=== PATIENT | female | born 1980 | race African-American/Black ===

== ENCOUNTER 2016-09-21 13:05 | Emergency (ER) | payer SELFPAY ==
[2016-09-21 13:13] VITALS: BP 125/89; BMI 26.9
--- NOTE | 2016-09-21 13:51 | DR.GENAD ---
HPI - PCP Primary Care Physician: NFD - Complaint/Symptoms Chief Complaint Doctors Comments: Patient admits to head ache for three days has been taking ibuprofen but in subtheapeutic dosing. Denies a history of migraine. Does not have a primary care phycian. Patient denies trauma Chief Complaint:: BAD HEADACHE AND LOW BACK PAIN BC LAYING DOWN SO MUCH Self Treatment fo Chief Complaint: IBUPROFEN, NYQUIL - Source History Provided: Patient - Mode of Arrival Mode of Arrival: Ambulatory - Timing Onset of Chief Complaint: 09/19/16 PMH - PMH Past Medical History: Yes Past Medical History: Hypertension Past Surgical History: Yes Surgical History: - Family History History of Family Medical Conditions: Yes Family Medical History: Diabetes Mellitus, Coronary Artery Disease, Hypertension - Social History Does patient currently use any type of tobacco product: Yes Have you used tobacco products in the last 12 months: Yes Type of Tobacco Use: Cigarettes How many years tobacco product used: 10 Does any household member use tobacco: No Alcohol Use: None Do you use any recreational Drugs:: No Lives With: Spouse Lives Where: Home - infectious screening In the last 2 months have you had wt loss of >10#?: NO Have you had fever, night sweats or hemotysis?: No Have you traveled outside the country in the last 6 months?: No Isolation: Standard ROS - Review of Systems Constitutional: No Symptoms Reported Eyes: No Symptoms Reported ENTM: No Symptoms Reported Respiratoy: No Symptoms Reported Cardiovascular: No Symptoms Reported Gastrointestinal/Abdominal: No Symptoms Reported Genitourinary: No Symptoms Reported Neurological: No Symptoms Reported Musculoskeletal: Back Pain Integumentary: No Symptoms Reported Hematologic/Lymphatic: No Symptoms Reported Endocrine: No Symptoms Reported Psychiatric: No Symptoms Reported All Other Systems: Reviewed and Negative PE - Vital Signs Vitals: Temperature 98.4 F Pulse Rate 77 Respiratory Rate 20 Blood Pressure [Left Arm] 162/96 Blood Pressure 125/89 O2 Sat by Pulse Oximetry 100 - General Limitations: No Limitations General Appearance: Alert, In No Apparent Distress - Head Head Exam: Normal Inspection, Atraumatic - Eyes Eye exam: Normal Appearance, PERRL, EOMI - ENT ENT Exam: Normal Exam External Ear Exam: Normal External Inspection TM/Canal Exam: Bilateral Normal Nose Exam: Normal Nose Exam Mouth Exam: Normal Inspection Throat Exam: Normal Inspection - Neck Neck Exam: Normal Inspection - Chest Chest Inspection: Normal Inspection - Respiratory Respiratory Exam: Normal Lung Sounds Bilat Respiratory Exam: Bilateral Clear to Auscultation - Cardiovascular Cardiovascular Exam: Regular Rate - Abdominal Exam Abdominal Exam: Normal Inspection, Normal Bowel Sounds Abdominal Tenderness: negative: RUQ, RLQ, LUQ, LLQ, Epigastrium, Suprapubic, Diffuse, Mild, Moderate, Severe, Other - Extremities Extremities Exam: Normal Inspection - Back Back Exam: (R) CVA Tenderness, Other (pain right iliac crest ) - Neurologic Neurological Exam: Alert, Oriented X3, CN II-XII Intact - Psychiatric Psychiatric Exam: Normal Affect, Normal Mood - Skin Skin Exam: Warm, Dry, Intact Course - Reevaluation 1st: Improved - Diagnosis Discharge Problem: Headache Qualifiers: Headache type: unspecified Headache chronicity pattern: acute headache Intractability: not intractable Qualified Code(s): R51 - Headache - Discharge Plan Condition: Stable - Follow ups/Referrals Follow ups/Referrals: NFD,None [Primary Care Provider] - 3 days - Instructions
[2016-09-21] MEDS ORDERED: TORADOL 60 MG VIAL IM ONE (14:00)
[2016-09-21] MEDS ORDERED: TORADOL 60 MG VIAL ONE (14:03)
== END 2016-09-21 14:28 | disposition home or self-care (01) ==
LOC: ER 13:37
DX: R51 Headache (principal)
CPT/HCPCS: 96372; 99282; J1885

== ENCOUNTER 2016-09-23 11:58 | Emergency (ER) | payer SELFPAY ==
[2016-09-23 12:06] VITALS: BP 157/86; BMI 30.7
--- NOTE | 2016-09-23 12:15 | DR.GENAD ---
HPI - PCP Primary Care Physician: nfd - Complaint/Symptoms Chief Complaint Doctors Comments: Patient was seen earlier in the week for simlar symptoms, stating that she is worse today, not getting better. She states that her headache is worse, sore throat and chronic back pain. She admits to soreness where she got her shot last week. Chief Complaint:: PT C/O NECK AND HEAD PAIN. AND URINATING BLOOD. PT STATES SHE WAS SEEN IN THE ER DEPT THE OTHER DAY AND PT STATES SHE IS ONLY GETTING WORSE. PT STATES SHE HAS BEEN RUNNING FEVER ON AND OFF AND NOT ABLE TO EAT ANYTHING. PT STATES SHE HAS NOT EVEN BEEN ABLE TO BRUSH HER HAIR HER HEAD HAS BEEN HURTING SO BAD - Source History Provided: Patient - Mode of Arrival Mode of Arrival: Ambulatory - Timing Onset of Chief Complaint: 09/20/16 PMH - PMH Past Medical History: Yes Past Medical History: Hypertension Past Surgical History: Yes Surgical History: - Family History History of Family Medical Conditions: Yes Family Medical History: Diabetes Mellitus, Coronary Artery Disease, Hypertension - Social History Does patient currently use any type of tobacco product: Yes Have you used tobacco products in the last 12 months: Yes Type of Tobacco Use: Cigarettes Does any household member use tobacco: Yes Alcohol Use: None Do you use any recreational Drugs:: No Lives With: Family Lives Where: Home - infectious screening In the last 2 months have you had wt loss of >10#?: NO Have you had fever, night sweats or hemotysis?: No Have you traveled outside the country in the last 6 months?: No Isolation: Standard ROS - Review of Systems Eyes: No Symptoms Reported ENTM: No Symptoms Reported Respiratoy: No Symptoms Reported Cardiovascular: No Symptoms Reported Gastrointestinal/Abdominal: No Symptoms Reported Genitourinary: No Symptoms Reported Neurological: No Symptoms Reported Musculoskeletal: No Symptoms Reported Integumentary: No Symptoms Reported Hematologic/Lymphatic: No Symptoms Reported Endocrine: No Symptoms Reported Psychiatric: No Symptoms Reported All Other Systems: Reviewed and Negative PE - Vital Signs Vitals: Temperature 100.2 F Pulse Rate 106 Respiratory Rate 20 Blood Pressure [Left Arm] 162/96 Blood Pressure 157/86 O2 Sat by Pulse Oximetry 100 - General Limitations: No Limitations General Appearance: Alert, In No Apparent Distress - Head Head Exam: Normal Inspection, Atraumatic - Eyes Eye exam: Normal Appearance, PERRL, EOMI - ENT ENT Exam: Normal Exam External Ear Exam: Normal External Inspection TM/Canal Exam: Bilateral Normal Nose Exam: Normal Nose Exam Mouth Exam: Normal Inspection Throat Exam: Normal Inspection, Tonsillar Erythema - Neck Neck Exam: Normal Inspection - Chest Chest Inspection: Normal Inspection - Respiratory Respiratory Exam: Normal Lung Sounds Bilat Respiratory Exam: Bilateral Clear to Auscultation - Cardiovascular Cardiovascular Exam: Regular Rate, Normal Rhythm - Abdominal Exam Abdominal Exam: Normal Inspection, Normal Bowel Sounds Abdominal Tenderness: negative: RUQ, RLQ, LUQ, LLQ, Epigastrium, Suprapubic, Diffuse, Mild, Moderate, Severe, Other - Extremities Extremities Exam: Normal Inspection - Back Back Exam: Normal Inspection, Full ROM - Neurologic Neurological Exam: Alert, Oriented X3, CN II-XII Intact - Psychiatric Psychiatric Exam: Normal Affect - Skin Skin Exam: Warm, Dry Course - Reevaluation 1st: Improved ROR - Labs Reviewed Laboratory Results Reviewed?: Yes (urine: 2+ lleukocytes, TNTC RBC) Result Diagrams: 09/23/16 12:31 09/23/16 12:31 Laboratory: WBC 19.7 X10^3/uL (3.6-10.0) H 09/23/16 12:31 RBC 3.84 X10^6/uL (3.5-5.4) 09/23/16 12:31 Hgb 11.7 g/dL (12.0-16.0) L 09/23/16 12:31 Hct 34.0 % (36.0-47.0) L 09/23/16 12:31 MCV 88.7 fL (80.0-100.0) 09/23/16 12:31 MCH 30.6 pg (27.0-34.0) 09/23/16 12:31 MCHC 34.5 g/dL (33.0-35.0) 09/23/16 12:31 RDW 13.5 % (11.6-16.5) 09/23/16 12:31 Plt Count 283 X10^3/uL (150.0-450.0) 09/23/16 12:31 Plt Count Comment Adequate (ADEQUATE) 09/23/16 12:31 MPV 7.4 fL (7.4-11.0) 09/23/16 12:31 Neut % 81.9 % (42.0-75.0) H 09/23/16 12:31 Lymph % 5.2 % (21.0-51.0) L 09/23/16 12:31 [place] % 12.2 % (0.0-13.0) 09/23/16 12:31 Eos % 0.1 % (0.9-2.9) L 09/23/16 12:31 Baso % 0.6 % (0.2-1.0) 09/23/16 12:31 Neut # 16.1 x10^3/uL (2.2-4.8) H 09/23/16 12:31 Lymph # 1.0 X10^3/uL (1.3-2.9) L 09/23/16 12:31 [place] # 2.4 x10^3/uL (0.3-0.8) H 09/23/16 12:31 Eos # 0.0 x10^3/uL (0.0-0.2) 09/23/16 12:31 Baso # 0.1 X10^3/uL (0.0-0.1) 09/23/16 12:31 Absolute Nucleated RBC 0.0 /100WBC 09/23/16 12:31 Total Counted 100 09/23/16 12:31 Neutrophils % (Manual) 74 % (39-76) 09/23/16 12:31 Band Neutrophils % 6 % (0-10) 09/23/16 12:31 Lymphocytes % (Manual) 11 % (13-43) L 09/23/16 12:31 Monocytes % (Manual) 9 % (4-9) 09/23/16 12:31 Plt Morphology Comment Normal (NORMAL) 09/23/16 12:31 RBC Morphology Normal (NORMAL) 09/23/16 12:31 Sodium 135 mmol/L (136-145) L 09/23/16 12:31 Corrected Sodium 135 mmol/L (136-145) L 09/23/16 12:31 Potassium 3.0 mmol/L (3.5-5.1) L* 09/23/16 12:31 Chloride 99 mmol/L (98-107) 09/23/16 12:31 Carbon Dioxide 29.3 mmol/L (21-32) 09/23/16 12:31 BUN 6 mg/dL (7-18) L 09/23/16 12:31 Creatinine 0.83 mg/dL (0.55-1.02) 09/23/16 12:31 Est GFR (MDRD) Af Amer > 60 (>60) 09/23/16 12:31 Est GFR (MDRD) Non-Af > 60 (>60) 09/23/16 12:31 Glucose 118 mg/dL (65-99) H 09/23/16 12:31 Calcium 8.9 mg/dL (8.5-10.1) 09/23/16 12:31 C-Reactive Protein 201.10 mg/L (0-3.0) H 09/23/16 12:31 Specimen Type Clean catch urine 09/23/16 12:54 Urine Color Red (YELLOW) 09/23/16 12:54 Urine Appearance Cloudy (CLEAR) 09/23/16 12:54 Urine pH 7.0 (5.0 - 8.0) 09/23/16 12:54 Ur Specific [place] 1.005 (1.000-1.030) 09/23/16 12:54 Urine Protein 3+ (NEGATIVE) 09/23/16 12:54 Urine Glucose (UA) 2+ (NEGATIVE) 09/23/16 12:54 Urine Ketones Negative (NEGATIVE) 09/23/16 12:54 Urine Occult Blood 5+ (NEGATIVE) 09/23/16 12:54 Urine Nitrite Negative (NEGATIVE) 09/23/16 12:54 Urine Bilirubin Negative (NEGATIVE) 09/23/16 12:54 Urine Urobilinogen 1+ (NORMAL) 09/23/16 12:54 Ur Leukocyte Esterase 2+ (NEGATIVE) 09/23/16 12:54 Urine RBC Tntc /HPF (NEGATIVE) 09/23/16 12:54 Urine WBC 3-5 /HPF (NEGATIVE) 09/23/16 12:54 Ur Squamous Epith Cells Rare /HPF (NEGATIVE) 09/23/16 12:54 Urine Bacteria Trace /HPF (NEGATIVE) 09/23/16 12:54 Ur Culture Indicated? No/not indicated 09/23/16 12:54 Streptococcus Screen Negative (NEGATIVE) 09/23/16 12:24 - XRAY XRAY Interpreted by: Radiologist (Sinus: Right sphenoid sinus infection; Mild inflammatory changnes present in the left maxilary sinus.) - Diagnosis Discharge Problem: Hypokalemia, Left maxillary sinusitis UTI (urinary tract infection) Qualifiers: Urinary tract infection type: acute cystitis Hematuria presence: with hematuria Qualified Code(s): N30.01 - Acute cystitis with hematuria Sphenoid sinusitis Qualifiers: Chronicity: acute Recurrence: non-recurrent Qualified Code(s): J01.30 - Acute sphenoidal sinusitis, unspecified - Discharge Plan Condition: Stable - Follow ups/Referrals Follow ups/Referrals: NFD,None [Primary Care Provider] - 3 days - Instructions
[2016-09-23] MEDS ORDERED: NS 1000 ML 1,000 ML IV ONE (12:23)
[2016-09-23] MEDS ORDERED: DEMEROL INJ IVP ONE (12:25)
[2016-09-23] MEDS ORDERED: NS 1000 ML 1,000 ML ONE (12:25)
[2016-09-23] MEDS ORDERED: DEMEROL INJ ONE (12:34)
[2016-09-23] MEDS ORDERED: PHENERGAN INJ 25 MG ONE (12:34)
[2016-09-23] MEDS ORDERED: PHENERGAN INJ 25 MG IV ONE (12:37)
[2016-09-23 12:47] LABS: BASOPHILS # (AUTO) 0.1 X10^3/uL (0.0-0.1); BASOPHILS % (AUTO) 0.6 % (0.2-1.0); EOSINOPHILS % (AUTO) 0.1 % (0.9-2.9); HEMOGLOBIN 11.7 g/dL (12.0-16.0); LYMPHOCYTES % (AUTO) 5.2 % (21.0-51.0); MEAN CORPUSCULAR HEMOGLOBIN 30.6 pg (27.0-34.0); MEAN CORPUSCULAR HGB CONC 34.5 g/dL (33.0-35.0); MEAN CORPUSCULAR VOLUME 88.7 fL (80.0-100.0); MEAN PLATELET VOLUME 7.4 fL (7.4-11.0); MONOCYTES # (AUTO) 2.4 x10^3/uL (0.3-0.8); MONOCYTES % (AUTO) 12.2 % (0.0-13.0); NEUTROPHILS # (AUTO) 16.1 x10^3/uL (2.2-4.8); NEUTROPHILS % (AUTO) 81.9 % (42.0-75.0); PLATELET COUNT 283 X10^3/uL (150.0-450.0); RED BLOOD COUNT 3.84 X10^6/uL (3.5-5.4); RED CELL DISTRIBUTION WIDTH 13.5 % (11.6-16.5); WHITE BLOOD COUNT 19.7 X10^3/uL (3.6-10.0)
[2016-09-23 12:51] LABS: BLOOD UREA NITROGEN 6 mg/dL (7-18); CALCIUM 8.9 mg/dL (8.5-10.1); CARBON DIOXIDE 29.3 mmol/L (21-32); CHLORIDE 99 mmol/L (98-107); COR NA(FOR HYPERGLY) 135 mmol/L (136-145); CREATININE 0.83 mg/dL (0.55-1.02); GLUCOSE 118 mg/dL (65-99); SODIUM 135 mmol/L (136-145); eGFR BLACK RACES > 60 (>60); eGFR NON BLACK RACES > 60 (>60)
[2016-09-23 12:54] LABS: BAND NEUTROPHILS % 6 % (0-10); PLATELET MORPHOLOGY COMMENT NORMAL (NORMAL)
[2016-09-23] MEDS ORDERED: K-LYTE EFFERVESCENT PO ONE (12:55)
--- NOTE | 2016-09-23 13:01 | RAD ---
Examination: Chest x-ray. Clinical history: Fever, headache and back pain. Technique: A single portable AP view of the chest was obtained. Comparison: 12/17/2013. Findings: The cardiac and mediastinal contours are within normal limits. No pneumothorax or pleural effusion is noted. The lungs are clear. No acute osseous abnormality is noted. Impression: 1. No acute disease. Reported By:
[2016-09-23 13:03] LABS: BILIRUBIN,URINE NEGATIVE (NEGATIVE); BLOOD/HEMOGLOBIN,URINE 5+ (NEGATIVE); GLUCOSE, URINE 2+ (NEGATIVE); KETONES,URINE NEGATIVE (NEGATIVE); LEUKOCYTE ESTERASE ,URINE 2+ (NEGATIVE); NITRITES,URINE NEGATIVE (NEGATIVE); PROTEIN,URINE 3+ (NEGATIVE); UROBILINOGEN,URINE 1+ (NORMAL)
--- NOTE | 2016-09-23 13:03 | CT ---
HISTORY: Headache Study: CT sinuses without contrast Comparison: None Technique: Axial non contrast images with coronal and sagittal reformats. Dose reduction procedures were used with MA/kv adjusted for body size. Findings: The frontal sinuses are clear. The right sphenoid sinus is not well aerated. The left sphenoid sinus is clear as are the ethmoid sinuses bilaterally. Mild inflammatory changes present in the left maxi llary sinus with mucosal thickening occluding the ostia on the left. The right maxillary sinus is cl ear as is the right ostiomeatal complex. There is leftward nasal septal deviation with a 4.[address] leftward directed bony septal spur. The middle ear spaces and mastoid air cells are clear. IMPRESSION: Mucosal inflammatory changes in the upper left maxillary sinus occluding the ostia. No air-fluid lev el to suggest acute sinusitis The remainder of the paranasal sinuses are clear. Leftward nasal septal deviation with a 4.5 millimeter leftward directed bony septal spur present. Reported By:
[2016-09-23] MEDS ORDERED: K-LYTE EFFERVESCENT ONE (13:12)
[2016-09-23] MEDS ORDERED: CLEOCIN 600 MG IV PREMIX 600 MG/50 ML BAG IV ONE (13:28)
[2016-09-23 13:32] LABS: APPEARANCE,URINE CLOUDY (CLEAR); BACTERIA,URINE TRACE /HPF (NEGATIVE); COLOR,URINE RED (YELLOW); RBC,URINE TNTC /HPF (NEGATIVE); SQUAMOUS EPITHELIAL CELL,UR RARE /HPF (NEGATIVE)
[2016-09-23] MEDS ORDERED: CLEOCIN VIAL 600 MG ONE (13:41)
[2016-09-23] MEDS ORDERED: K-DUR TAB 20 MEQ PO STA (14:26)
[2016-09-23] MEDS ORDERED: K-DUR TAB 20 MEQ PO ONE (14:45)
== END 2016-09-23 15:21 | disposition home or self-care (01) ==
LOC: ER 12:08
DX: E87.6 Hypokalemia (principal); N39.0 Urinary tract infection, site not specified; R31.9 Hematuria, unspecified; J01.30 Acute sphenoidal sinusitis, unspecified; J01.00 Acute maxillary sinusitis, unspecified
CPT/HCPCS: 36415; 70486; 71010; 80048; 81001; 85025; 86140; 87070; 87880; 96365; 96374; 96375; 99283; A4222; J2175; J2550; S0077

== ENCOUNTER 2023-12-18 16:17 | Observation (INO) ==
--- NOTE | 2023-12-18 17:57 | DR.DIZZY ---
HPI Time seen Time Seen by Provider: 12/18/23 17:48 PCP Primary Care Physician: MARIAJOSE Complaint Chief Complaint:: patient states yesterday she started feeling very lighted headed and right sided rib pain denies any injuries. patient denies any vomiting,nauseous,fever. Last bowel movement was 2 days ago COVID-19 Coronavirus risk:travel/contact w/high risk person: No Has patient experienced Coronavirus symptoms: No Nurses Notes Reviewed Nurses Notes Review: Yes Source History Provided: Patient Mode of Arrival Mode of Arrival: Wheelchair Timing Onset of Chief Complaint: 12/17/23 PMH PMH Past Medical History: Yes Past Medical History: Hypertension Past Medical History Comment: chronic back pain Past Surgical History: Yes Surgical History: Family History History of Family Medical Conditions: Yes Family Medical History: Diabetes Mellitus and Hypertension Social History Does patient currently use any type of tobacco product: Yes Have you used tobacco products in the last 12 months: Yes Type of Tobacco Use: Cigarettes Does any household member use tobacco: Yes Alcohol Use: None Do you use any recreational Drugs:: No Lives With: Family Lives Where: Home Travel Risk Coronavirus risk:travel/contact w/high risk person: No Has patient experienced Coronavirus symptoms: No Infectious screening In the last 2 months have you had wt loss of >10#?: NO Have you had fever, night sweats or hemotysis?: No Have you traveled outside the country in the last 6 months?: No Isolation: Standard PE Vital Signs Vitals: Vital Signs Temperature 99.0 F Pulse Rate 105 Respiratory Rate 20 Blood Pressure [Right Arm] 127/60 Blood Pressure 121/61 O2 Sat by Pulse Oximetry 100 ROR Labs Reviewed 12/18/23 17:53 12/18/23 17:53 Laboratory: WBC 7.7 X10^3/uL (3.6-10.0) 12/18/23 17:53 RBC 2.20 X10^6/uL (3.5-5.4) L 12/18/23 17:53 Hgb 4.0 g/dL (12.0-16.0) L* 12/18/23 17:53 Hct 13.8 % (36.0-47.0) L* 12/18/23 17:53 MCV 62.8 fL (80.0-100.0) L 12/18/23 17:53 MCH 18.2 pg (27.0-34.0) L 12/18/23 17:53 MCHC 28.9 g/dL (33.0-35.0) L 12/18/23 17:53 RDW 21.8 % (11.6-16.5) H 12/18/23 17:53 Plt Count 301 X10^3/uL (150.0-450.0) 12/18/23 17:53 Plt Count Comment Adequate (ADEQUATE) 12/18/23 17:53 MPV 7.1 fL (7.4-11.0) L 12/18/23 17:53 Neut % (Auto) 46.6 % (42.0-75.0) 12/18/23 17:53 Lymph % (Auto) 46.7 % (21.0-51.0) 12/18/23 17:53 [place] % (Auto) 4.4 % (0.0-13.0) 12/18/23 17:53 Eos % (Auto) 0.4 % (0.9-2.9) L 12/18/23 17:53 Baso % (Auto) 1.9 % (0.2-1.0) H 12/18/23 17:53 Neut # (Auto) 3.6 x10^3/uL (2.2-4.8) 12/18/23 17:53 Lymph # (Auto) 3.6 X10^3/uL (1.3-2.9) H 12/18/23 17:53 [place] # (Auto) 0.3 x10^3/uL (0.3-0.8) 12/18/23 17:53 Eos # (Auto) 0.0 x10^3/uL (0.0-0.2) 12/18/23 17:53 Baso # (Auto) 0.1 X10^3/uL (0.0-0.1) 12/18/23 17:53 Absolute Nucleated RBC 0.1 /100WBC 12/18/23 17:53 Plt Morphology Comment Normal (NORMAL) 12/18/23 17:53 RBC Morphology Abnormal (NORMAL) A 12/18/23 17:53 Hypochromasia 3+ A 12/18/23 17:53 Anisocytosis 1+ A 12/18/23 17:53 Microcytosis 2+ A 12/18/23 17:53 Absolute Retic 0.0487 10^6/uL 12/18/23 17:53 Percent Retic 2.19 % (0.8-2.2) 12/18/23 17:53 Sodium 137 mmol/L (136-145) 12/18/23 17:53 Corrected Sodium TNP 12/18/23 17:53 Potassium 3.9 mmol/L (3.5-5.1) 12/18/23 17:53 Chloride 104 mmol/L (98-107) 12/18/23 17:53 Carbon Dioxide 27.8 mmol/L (21-32) 12/18/23 17:53 BUN 20 mg/dL (7-18) H 12/18/23 17:53 Creatinine 0.69 mg/dL (0.55-1.02) 12/18/23 17:53 Est GFR (MDRD) Af Amer > 60 (>60) 12/18/23 17:53 Est GFR (MDRD) Non-Af > 60 (>60) 12/18/23 17:53 Glucose 110 mg/dL (65-99) H 12/18/23 17:53 Calcium 8.8 mg/dL (8.5-10.1) 12/18/23 17:53 Corrected Calcium 9.5 mg/dL (8.5-10.1) 12/18/23 17:53 Iron 8 ug/dL (50-175) L 12/18/23 17:53 TIBC 461 ug/dL (250-450) H 12/18/23 17:53 Transferrin 334 mg/dL (202-364) 12/18/23 17:53 Ferritin 3 ng/mL (8-252) L 12/18/23 17:53 Total Bilirubin 0.10 mg/dL (0.2-1.0) L 12/18/23 17:53 AST 10 Units/L (15-37) L 12/18/23 17:53 ALT 15 Units/L (12-78) 12/18/23 17:53 Alkaline Phosphatase 55 Units/L (46-116) 12/18/23 17:53 Total Protein 6.5 g/dL (6.4-8.2) 12/18/23 17:53 Albumin 3.1 g/dL (3.4-5.0) L 12/18/23 17:53 Globulin 3.4 g/dL (2.5-4.5) 12/18/23 17:53 Albumin/Globulin Ratio 0.9 Ratio (1.1-2.1) L 12/18/23 17:53 Vitamin B12 474 pg/mL (193-986) 12/18/23 17:53 Folate 11.7 ng/mL (>8.6) 12/18/23 17:53 SARS-CoV-2 (PCR) Negative (NEGATIVE) 12/18/23 18:53 Blood Type A POSITIVE 12/18/23 18:43 Antibody Screen Negative 12/18/23 18:43 Crossmatch See Detail 12/18/23 18:43 Opioid Opioid Risk Tool Age (Robert box if 16-45): Yes History of Preadolescent Sexual Abuse: No Total: 1 Total Score Risk Category: Low Risk Copyright: Kevin BOGGS predicting aberrant behaviors Discharge Plan Diagnosis Discharge Problem: Anemia, Dizziness Discharge Plan Patient Disposition: 01 HOME, SELF-CARE Condition: Stable Prescriptions: No Action [facility] Concerns: Post Hospitalization: new medications and changes needed to prevent readmission or further decline. Pt educated and given instructions on all concerns. Plan of Treatment: Continue with present treatment and follow up plan. Pt is to keep follow up appointment as instructed and take medications as ordered. Orders to Discharge Patient Discharge Orders: Transfer (Routine); Ordered 12/18/23 Ordered By: ANTON DAMON Follow ups/Referrals Follow ups/Referrals: NFD,None [Primary Care Provider] - 3 days Instructions Stand Alone Forms: Post Hospital Follow Up Care
[2023-12-18 18:20] LABS: ALANINE AMINOTRANSFERASE 15 Units/L (12-78); ALBUMIN 3.1 g/dL (3.4-5.0); ALKALINE PHOSPHATASE 55 Units/L (46-116); ASPARTATE AMINO TRANSFERASE 10 Units/L (15-37); BLOOD UREA NITROGEN 20 mg/dL (7-18); CALCIUM 8.8 mg/dL (8.5-10.1); CARBON DIOXIDE 27.8 mmol/L (21-32); CHLORIDE 104 mmol/L (98-107); COR CA(FOR HYPOALB) 9.5 mg/dL (8.5-10.1); CREATININE 0.69 mg/dL (0.55-1.02); GLUCOSE 110 mg/dL (65-99); POTASSIUM 3.9 mmol/L (3.5-5.1); SODIUM 137 mmol/L (136-145); TOTAL PROTEIN 6.5 g/dL (6.4-8.2); eGFR NON BLACK RACES > 60 (>60)
[2023-12-18 18:23] LABS: BASOPHILS # (AUTO) 0.1 X10^3/uL (0.0-0.1); BASOPHILS % (AUTO) 1.9 % (0.2-1.0); EOSINOPHILS % (AUTO) 0.4 % (0.9-2.9); LYMPHOCYTES # (AUTO) 3.6 X10^3/uL (1.3-2.9); LYMPHOCYTES % (AUTO) 46.7 % (21.0-51.0); MEAN CORPUSCULAR HEMOGLOBIN 18.2 pg (27.0-34.0); MEAN CORPUSCULAR HGB CONC 28.9 g/dL (33.0-35.0); MEAN CORPUSCULAR VOLUME 62.8 fL (80.0-100.0); MEAN PLATELET VOLUME 7.1 fL (7.4-11.0); MONOCYTES # (AUTO) 0.3 x10^3/uL (0.3-0.8); MONOCYTES % (AUTO) 4.4 % (0.0-13.0); NEUTROPHILS # (AUTO) 3.6 x10^3/uL (2.2-4.8); NEUTROPHILS % (AUTO) 46.6 % (42.0-75.0); PLATELET COUNT 301 X10^3/uL (150.0-450.0); RED CELL DISTRIBUTION WIDTH 21.8 % (11.6-16.5); WHITE BLOOD COUNT 7.7 X10^3/uL (3.6-10.0)
[2023-12-18 18:29] LABS: HEMATOCRIT 13.8 % (36.0-47.0)
[2023-12-18 18:43] LABS: ANISOCYTOSIS 1+; HYPOCHROMASIA 3+; MICROCYTOSIS 2+; PLATELET MORPHOLOGY COMMENT NORMAL (NORMAL)
[2023-12-18 19:17] LABS: RETICULOCYTE % 2.19 % (0.8-2.2)
[2023-12-18] MEDS ORDERED: NS 250 ML IV 250 ML IV ONE (21:56)
[2023-12-19] MEDS: NORCO 5/325 MG TAB PO PRN (00:55)
[2023-12-19 01:21] VITALS: BMI 23.6
[2023-12-19] MEDS: MORPHINE SULFATE INJ 2 MG INJ IVP PRN (03:30)
--- NOTE | 2023-12-19 04:41 | EKG ---
Test Reason : hypertenion protocol Blood Pressure : */* mmHG Vent. Rate : 69 BPM Atrial Rate : 69 BPM P-R Int : 138 ms QRS Dur : 82 ms QT Int : 408 ms P-R-T Axes : 58 63 86 degrees QTc Int : 437 ms Normal sinus rhythm Minimal voltage criteria for LVH, may be normal variant ( Sokolow-Tucker ) Nonspecific T wave abnormality Abnormal ECG No previous ECGs available Confirmed by Domenic Kidd MD ([id number]) on 12/19/2023 7:01:12 AM Referred By: Confirmed By: Domenic Kidd MD
[2023-12-19] MEDS: CATAPRES TAB 0.1 MG PO ONE (04:45)
[2023-12-19] MEDS: APRESOLINE INJ 20 MG VIAL IVP ONE (06:01)
[2023-12-19 06:40] LABS: BASOPHILS # (AUTO) 0.1 X10^3/uL (0.0-0.1); EOSINOPHILS # (AUTO) 0.1 x10^3/uL (0.0-0.2); EOSINOPHILS % (AUTO) 0.6 % (0.9-2.9); LYMPHOCYTES # (AUTO) 2.8 X10^3/uL (1.3-2.9); LYMPHOCYTES % (AUTO) 30.7 % (21.0-51.0)
[2023-12-19 06:44] LABS: BASOPHILS % (AUTO) 1.3 % (0.2-1.0); MEAN CORPUSCULAR HGB CONC 31.5 g/dL (33.0-35.0); MONOCYTES # (AUTO) 0.4 x10^3/uL (0.3-0.8); MONOCYTES % (AUTO) 4.6 % (0.0-13.0); NEUTROPHILS # (AUTO) 5.7 x10^3/uL (2.2-4.8); NEUTROPHILS % (AUTO) 62.8 % (42.0-75.0); PLATELET COUNT 270 X10^3/uL (150.0-450.0); RED BLOOD COUNT 2.33 X10^6/uL (3.5-5.4); RED CELL DISTRIBUTION WIDTH 27.3 % (11.6-16.5)
[2023-12-19 06:52] LABS: HEMATOCRIT 16.3 % (36.0-47.0); HEMOGLOBIN 5.1 g/dL (12.0-16.0)
[2023-12-19 07:00] LABS: ALANINE AMINOTRANSFERASE 15 Units/L (12-78); ALBUMIN 3.1 g/dL (3.4-5.0); ALKALINE PHOSPHATASE 53 Units/L (46-116); ASPARTATE AMINO TRANSFERASE 12 Units/L (15-37); BLOOD UREA NITROGEN 23 mg/dL (7-18); CALCIUM 8.4 mg/dL (8.5-10.1); CARBON DIOXIDE 28.2 mmol/L (21-32); CHLORIDE 101 mmol/L (98-107); COR CA(FOR HYPOALB) 9.1 mg/dL (8.5-10.1); CREATININE 0.65 mg/dL (0.55-1.02); GLUCOSE 99 mg/dL (65-99); POTASSIUM 3.8 mmol/L (3.5-5.1); SODIUM 134 mmol/L (136-145); TOTAL PROTEIN 6.4 g/dL (6.4-8.2); eGFR NON BLACK RACES > 60 (>60)
[2023-12-19 07:01] LABS: PLATELET MORPHOLOGY COMMENT NORMAL (NORMAL)
[2023-12-19 07:02] LABS: ANISOCYTOSIS 3+; HYPOCHROMASIA 2+; MICROCYTOSIS 1+; POIKILOCYTOSIS 1+
[2023-12-19] MEDS ORDERED: CONSULT PHARMACY - POTASSIUM & MAGNESIUM XX SCH (08:00)
[2023-12-19] MEDS: K-DUR TAB 20 MEQ PO SCH (09:39)
[2023-12-19] MEDS: MAG-OX TAB PO SCH (09:40)
[2023-12-19] MEDS ORDERED: ZOFRAN INJ 4 MG VIAL IVP PRN (09:41)
[2023-12-19] MEDS: PEPCID TAB 20 MG PO PRN (10:42)
--- NOTE | 2023-12-19 11:07 | DR.H&P ---
H&P History & Physical for Day of: H&P Date: 12/19/23 Chief Complaint Chief Complaint: weakness, nausea, rib pain History of Present Illness History of Present Illness: Ms Munoz is a 43y/o female with no pertinent medical problems presented with generalized weakness, nausea and right sided abdominal pain. She states her symptoms started 2 days ago. She reports pain in the RUQ rib area. Denies any recent fall or injury. Denies vomiting or diarrhea. Er work up showed Hgb 4.0, k 3.8, Mag 1.7. FOBT (-). KUB was negative for any acute changes. She was started on hydration and blood transfusion. She has received 1 unit PRBC so far, Hgb 5.1. Her BP was also elevated, received IV hydralazine as per protocol. She continues to have severe pain in the RUQ area. Denies prior hx of anemia, never had EGD or colonoscopy. Labs/imaging reviewed: -WBC 9.0 Hgb 5.1 Plt 270 K 3.8 mag 1.7 iron 8 ferritin 3 FOBT (-) Plan: will check lactic acid, stat CTAP and CXR. Start hydration with NS. Replace electrolytes as per protocol. Continue transfusion PRBC, monitor H&H. Monitor BP and HR. Monitor AM labs/imaging. Past Medical History Past Medical History: Hypertension Past Surgical History Surgical History: Family History Family Medical History: Heart Failure Social History Does patient currently use any type of tobacco product: Yes Have you used tobacco products in the last 12 months: Yes Type of Tobacco Use: Cigarettes How many years tobacco product used: 27 Does any household member use tobacco: Yes Alcohol Use: None Drug Use: None Medications Home Medications: Home Medications Medication Instructions Recorded Confirmed Type NK 12/18/23 12/18/23 History Allergies Allergies Allergy/AdvReac Type Severity Reaction Status Date / Time Penicillins Allergy Verified 12/06/18 14:30 Labs 12/19/23 05:34 12/19/23 05:34 Labs: Laboratory WBC 9.0 X10^3/uL (3.6-10.0) 12/19/23 05:34 RBC 2.33 X10^6/uL (3.5-5.4) L 12/19/23 05:34 Hgb 5.1 g/dL (12.0-16.0) L* 12/19/23 05:34 Hct 16.3 % (36.0-47.0) L* 12/19/23 05:34 MCV 70.0 fL (80.0-100.0) L 12/19/23 05:34 MCH 22.0 pg (27.0-34.0) L 12/19/23 05:34 MCHC 31.5 g/dL (33.0-35.0) L 12/19/23 05:34 RDW 27.3 % (11.6-16.5) H 12/19/23 05:34 Plt Count 270 X10^3/uL (150.0-450.0) 12/19/23 05:34 Plt Count Comment Adequate (ADEQUATE) 12/19/23 05:34 MPV 7.0 fL (7.4-11.0) L 12/19/23 05:34 Neut % (Auto) 62.8 % (42.0-75.0) 12/19/23 05:34 Lymph % (Auto) 30.7 % (21.0-51.0) 12/19/23 05:34 [place] % (Auto) 4.6 % (0.0-13.0) 12/19/23 05:34 Eos % (Auto) 0.6 % (0.9-2.9) L 12/19/23 05:34 Baso % (Auto) 1.3 % (0.2-1.0) H 12/19/23 05:34 Neut # (Auto) 5.7 x10^3/uL (2.2-4.8) H 12/19/23 05:34 Lymph # (Auto) 2.8 X10^3/uL (1.3-2.9) 12/19/23 05:34 [place] # (Auto) 0.4 x10^3/uL (0.3-0.8) 12/19/23 05:34 Eos # (Auto) 0.1 x10^3/uL (0.0-0.2) 12/19/23 05:34 Baso # (Auto) 0.1 X10^3/uL (0.0-0.1) 12/19/23 05:34 Absolute Nucleated RBC 0.0 /100WBC 12/19/23 05:34 Plt Morphology Comment Normal (NORMAL) 12/19/23 05:34 RBC Morphology Abnormal (NORMAL) A 12/19/23 05:34 Dimorphic RBCs Present 12/19/23 05:34 Hypochromasia 2+ A 12/19/23 05:34 Poikilocytosis 1+ A 12/19/23 05:34 Anisocytosis 3+ A 12/19/23 05:34 Microcytosis 1+ A 12/19/23 05:34 Absolute Retic 0.0487 10^6/uL 12/18/23 17:53 Percent Retic 2.19 % (0.8-2.2) 12/18/23 17:53 Sodium 134 mmol/L (136-145) L 12/19/23 05:34 Corrected Sodium TNP 12/19/23 05:34 Potassium 3.8 mmol/L (3.5-5.1) 12/19/23 05:34 Chloride 101 mmol/L (98-107) 12/19/23 05:34 Carbon Dioxide 28.2 mmol/L (21-32) 12/19/23 05:34 BUN 23 mg/dL (7-18) H 12/19/23 05:34 Creatinine 0.65 mg/dL (0.55-1.02) 12/19/23 05:34 Est GFR (MDRD) Af Amer > 60 (>60) 12/19/23 05:34 Est GFR (MDRD) Non-Af > 60 (>60) 12/19/23 05:34 Glucose 99 mg/dL (65-99) 12/19/23 05:34 Lactic Acid 1.2 mmol/L (0.4-2.0) 12/19/23 09:50 Calcium 8.4 mg/dL (8.5-10.1) L 12/19/23 05:34 Corrected Calcium 9.1 mg/dL (8.5-10.1) 12/19/23 05:34 Magnesium 1.7 mg/dL (2.0-2.9) L 12/19/23 05:34 Iron 8 ug/dL (50-175) L 12/18/23 17:53 TIBC 461 ug/dL (250-450) H 12/18/23 17:53 Transferrin 334 mg/dL (202-364) 12/18/23 17:53 Ferritin 3 ng/mL (8-252) L 12/18/23 17:53 Total Bilirubin 0.30 mg/dL (0.2-1.0) 12/19/23 05:34 AST 12 Units/L (15-37) L 12/19/23 05:34 ALT 15 Units/L (12-78) 12/19/23 05:34 Alkaline Phosphatase 53 Units/L (46-116) 12/19/23 05:34 Total Protein 6.4 g/dL (6.4-8.2) 12/19/23 05:34 Albumin 3.1 g/dL (3.4-5.0) L 12/19/23 05:34 Globulin 3.3 g/dL (2.5-4.5) 12/19/23 05:34 Albumin/Globulin Ratio 0.9 Ratio (1.1-2.1) L 12/19/23 05:34 Vitamin B12 474 pg/mL (193-986) 12/18/23 17:53 Folate 11.7 ng/mL (>8.6) 12/18/23 17:53 Stool Occult Blood Negative (NEGATIVE) 12/18/23 20:54 SARS-CoV-2 (PCR) Negative (NEGATIVE) 12/18/23 18:53 Blood Type A POSITIVE 12/18/23 18:43 Antibody Screen Negative 12/18/23 18:43 Crossmatch See Detail 12/18/23 18:43 Review of Systems Constitutional: Weakness Eyes: No Symptoms Reported ENT: No Symptoms Reported Respiratory: No Symptoms Reported Cardiovascular: No Symptoms Reported Gastrointestinal: Nausea and Abdominal Pain Genitourinary: No Symptoms Reported Musculoskeletal: No Symptoms Reported Skin: No Symptoms Reported Neurological: No Symptoms Reported Physical Exam Vital Signs: Vital Signs Temperature 98.2 F Pulse Rate [Apical] 72 Pulse Rate [Apical] 73 Pulse Rate [Apical] 86 Pulse Rate [Apical] 70 Pulse Rate [Apical] 77 Pulse Rate [Apical] 79 Pulse Rate [Apical] 74 Pulse Rate [Apical] 76 Respiratory Rate 18 Respiratory Rate 18 Respiratory Rate 18 Respiratory Rate 20 Respiratory Rate 20 Respiratory Rate 20 Blood Pressure [Right Arm] 124/60 Blood Pressure [Right Arm] 123/58 Blood Pressure [Right Arm] 138/65 Blood Pressure [Right Arm] 155/74 Blood Pressure [Right Arm] 162/74 Blood Pressure [Right Arm] 170/79 Blood Pressure [Right Arm] 196/85 Blood Pressure [Right Arm] 159/82 Blood Pressure [Right Arm] 185/99 Blood Pressure [Right Arm] 183/92 Blood Pressure [Right Arm] 184/88 Blood Pressure [Right Arm] 184/86 Blood Pressure [Right Arm] 173/92 Blood Pressure [Right Arm] 163/88 Blood Pressure [Right Arm] 204/100 Blood Pressure [Right Arm] 180/89 Blood Pressure [Right Arm] 163/85 O2 Sat by Pulse Oximetry 100 O2 Sat by Pulse Oximetry 100 O2 Sat by Pulse Oximetry 100 Oriented: Normal Eyes: Normal Throat: Normal Respiratory: Clear Throughout Cardiovascular: Normal Auscultation: Bowel Sounds: Normal Tenderness: RUQ, RLQ, Moderate and Severe; negative Guarding or Rigidity Skin: Normal Musculoskeletal: Normal Psychiatric: Normal Mood Description: Calm Affect: Normal Speech Pattern: Clear and Appropriate Assessment/Plan (1) Symptomatic anemia: Status: Acute (2) Abdominal pain: Qualifiers: Abdominal location: right lower quadrant Qualified Code(s): R10.31 - Right lower quadrant pain Status: Acute (3) Hypokalemia: Status: Acute (4) Hypomagnesemia: Status: Acute (5) Generalized weakness: Status: Acute (6) MAGGY (iron deficiency anemia): Qualifiers: Iron deficiency anemia type: inadequate dietary iron intake Qualified Code(s): D50.8 - Other iron deficiency anemias Status: Acute (7) Malignant hypertension: Status: Acute Review H&P Reviewed: Yes Patient was examined?: Yes
[2023-12-19] MEDS: NS 1,000 ML IV 1,000 ML IV SCH (11:11)
--- NOTE | 2023-12-19 13:41 | RAD ---
EXAM:CHEST, 1 VIEWHISTORY:right side rib pain;COMPARISON:No relevant prior studies were available for comparison at the time of interpretation.TECHNIQUE:CHEST, 1 VIEWFINDINGS:Chest:Lines and tubes: NoneMediastinum: Cardiac and mediastinal shadow is within normal limits for size and contour.Pulmonary vessels: No pulmonary vascular congestion.Lung yañez: No suspicious airspace opacity.Pleura: No effusion. No pneumothorax.Bones and soft tissues: No acute osseous or soft tissue abnormality.IMPRESSION:1. No acute cardiopulmonary abnormalityTHIS IS AN ELECTRONICALLY VERIFIED FINAL REPORT12/19/2023 1:37 PM - Electronically signed by Fabiano Camp MD
[2023-12-19 15:13] LABS: HEMATOCRIT 19.5 % (36.0-47.0); HEMOGLOBIN 6.3 g/dL (12.0-16.0)
--- NOTE | 2023-12-19 15:13 | CT ---
EXAM:ABDCMEN/PELVIS WITH CONHISTORY:RIGHT SIDED ABDOMEN PAIN, NAUSEA;COMPARISON:12/07/2018TECHNIQUE: ltiple axial images of the abdomen and pelvis were obtained with IV contrast. Oral contrast was administered. Dose reduction techniques including Automated Exposure Control (AEC) and adjustment of mA and kV were utilized.FINDINGS:The lung bases are unremarkable. No free air.Bones show no lytic or destructive process with degenerative changes in the lumbar spine at the L4-5 and L5-S1 levels most notably with right posterior paracentral disc protrusion at L5-S1 most notably.Liver has a few scattered cysts similar to prior. Gallbladder, spleen, adrenal glands are unremarkable. Areas of cortical scarring at each kidney. No hydronephrosis. No evidence for ureteral calculi.Pancreas appears unremarkable, there is ill-defined haziness and fluid in the niraj hepatis region. The duodenal appears unremarkable.Abdominal aorta has vascular calcification, not aneurysmal, no adenopathy identified.Bladder unremarkable. No adnexal mass. No significant pelvic free fluid.Nonobstructive bowel. Mild colonic stool. Normal appendix.IMPRESSION:1. Ill-defined fluid and edema in the niraj hepatis region, this may relate to duodenitis or pancreatitis. Needs correlation. Gallbladder appears unremarkable.2. Areas of presumed scarring in each kidney for instance right renal lower pole and left renal upper pole, presumably this is scarring rather than pyelonephritis but still recommend clinical correlation. No hydronephrosis, no perinephric fluid collection. No evidence for ureteral calculi.3. Scattered cysts in the liver.4. Nonobstructive bowel. Moderate proximal colon stool, no bowel inflammatory features. Normal appendix.THIS IS AN ELECTRONICALLY VERIFIED FINAL REPORT12/19/2023 3:09 PM - Electronically signed by Lei Harkins MD
[2023-12-19 16:30] LABS: AMYLASE 72 Units/L (25-115); LIPASE 69 Units/L (16-77)
[2023-12-19] MEDS: ROCEPHIN VIAL 1 GRAM 1 G in NS 100 ML IV 100 ML IV SCH (17:37)
[2023-12-19] MEDS: PROTONIX INJ 40 MG VIAL IVP SCH (17:37)
[2023-12-20 06:10] LABS: BASOPHILS # (AUTO) 0.1 X10^3/uL (0.0-0.1); BASOPHILS % (AUTO) 1.3 % (0.2-1.0); EOSINOPHILS # (AUTO) 0.1 x10^3/uL (0.0-0.2); EOSINOPHILS % (AUTO) 0.9 % (0.9-2.9); HEMATOCRIT 26.9 % (36.0-47.0); LYMPHOCYTES # (AUTO) 2.6 X10^3/uL (1.3-2.9); LYMPHOCYTES % (AUTO) 25.1 % (21.0-51.0); MEAN CORPUSCULAR HEMOGLOBIN 24.9 pg (27.0-34.0); MEAN CORPUSCULAR HGB CONC 32.3 g/dL (33.0-35.0); MEAN CORPUSCULAR VOLUME 77.2 fL (80.0-100.0); MEAN PLATELET VOLUME 7.2 fL (7.4-11.0); MONOCYTES # (AUTO) 0.6 x10^3/uL (0.3-0.8); MONOCYTES % (AUTO) 5.6 % (0.0-13.0); NEUTROPHILS # (AUTO) 6.9 x10^3/uL (2.2-4.8); NEUTROPHILS % (AUTO) 67.1 % (42.0-75.0); PLATELET COUNT 216 X10^3/uL (150.0-450.0); RED BLOOD COUNT 3.48 X10^6/uL (3.5-5.4); RED CELL DISTRIBUTION WIDTH 22.9 % (11.6-16.5); WHITE BLOOD COUNT 10.3 X10^3/uL (3.6-10.0)
[2023-12-20 06:18] LABS: HEMOGLOBIN 8.7 g/dL (12.0-16.0)
[2023-12-20 06:32] LABS: ALANINE AMINOTRANSFERASE 14 Units/L (12-78); ALBUMIN 3.1 g/dL (3.4-5.0); ALKALINE PHOSPHATASE 54 Units/L (46-116); ASPARTATE AMINO TRANSFERASE 14 Units/L (15-37); BLOOD UREA NITROGEN 9 mg/dL (7-18); CALCIUM 8.4 mg/dL (8.5-10.1); CARBON DIOXIDE 22.5 mmol/L (21-32); CHLORIDE 104 mmol/L (98-107); COR CA(FOR HYPOALB) 9.1 mg/dL (8.5-10.1); COR NA(FOR HYPERGLY) 135 mmol/L (136-145); CREATININE 0.66 mg/dL (0.55-1.02); GLUCOSE 114 mg/dL (65-99); MAGNESIUM 1.8 mg/dL (2.0-2.9); SODIUM 135 mmol/L (136-145); TOTAL PROTEIN 6.7 g/dL (6.4-8.2); eGFR NON BLACK RACES > 60 (>60)
[2023-12-20 06:40] LABS: ANISOCYTOSIS 2+; HYPOCHROMASIA SLIGHT; MICROCYTOSIS SLIGHT; PLATELET MORPHOLOGY COMMENT NORMAL (NORMAL); POIKILOCYTOSIS SLIGHT; TARGET CELLS SLIGHT
[2023-12-20] MEDS ORDERED: CONSULT PHARMACY - POTASSIUM & MAGNESIUM XX SCH (07:00)
[2023-12-20] MEDS: NS 250 ML IV 250 ML IV ONE ×3 (07:29→12:04)
[2023-12-20] MEDS: MILK OF MAGNESIA PO PRN (08:54)
--- NOTE | 2023-12-20 10:45 | PCM.PROG ---
Progress Note Progress Note for Day of Date of Exam: 12/20/23 Subjective Subjective: Patient seen at bedside, no acute events overnight. She has been tolerating PO intake, denies N/V. Her abdominal pain is slightly better but still worse in the RUQ. She has not had a BM in 2 days. Hgb is 8.7. She did have elevated BP yesterday, treated with HTN protocol. CTAP showed pancreat itis/duodenitis. She is currently on IV fluids and Rocephin. Labs/imaging reviewed: -WBC 10.3 Hgb 8.7 Mag 1.8 -CXR: no acute process -CTAP: liver cysts, pancreatitis/duodenitis Plan: Order gallbladder US. Continue IV fluids, pain control and antibiotics. Continue pepcid and pantoprazole. Replace electrolytes as per protocol. Patient is tolerating regular diet. Add amlodipine for BP. Ambulate as tolerated. Monitor AM labs/imaging. Past Medical Family Social History Allergies: Allergies Penicillins Allergy (Verified 12/06/18 14:30) Vital Signs and I&O's Vital Signs: Vital Signs Temperature 98.3 F Temperature 98.5 F Pulse Rate [Apical] 88 Pulse Rate [Apical] 64 Respiratory Rate 18 Respiratory Rate 18 Respiratory Rate 18 Respiratory Rate 18 Respiratory Rate 20 Respiratory Rate 18 Blood Pressure [Right Arm] 161/76 Blood Pressure [Right Arm] 182/74 O2 Sat by Pulse Oximetry 100 O2 Sat by Pulse Oximetry 100 Intake and Output: Intake & Output 12/17/23 12/18/23 12/19/23 12/20/23 23:59 23:59 23:59 23:59 Intake Total 0 / 0 3349 / 3349 1718 / 1718 Balance 0 / 0 3349 / 3349 1718 / 1718 Physical Exam Oriented: Normal Eyes: Normal Throat: Normal Respiratory: Normal Cardiovascular: Normal Auscultation: Bowel Sounds: Normal Tenderness: RUQ and Moderate; negative Guarding or Rigidity Skin: Normal Musculoskeletal: Normal Psychiatric: Normal Mood Description: Calm Affect: Normal Speech Pattern: Clear and Appropriate Laboratory and Diagnostics 12/20/23 05:22 12/20/23 05:22 Labs: Laboratory WBC 10.3 X10^3/uL (3.6-10.0) H 12/20/23 05:22 RBC 3.48 X10^6/uL (3.5-5.4) L 12/20/23 05:22 Hgb 8.7 g/dL (12.0-16.0) L D 12/20/23 05:22 Hct 26.9 % (36.0-47.0) L 12/20/23 05:22 MCV 77.2 fL (80.0-100.0) L 12/20/23 05:22 MCH 24.9 pg (27.0-34.0) L 12/20/23 05:22 MCHC 32.3 g/dL (33.0-35.0) L 12/20/23 05:22 RDW 22.9 % (11.6-16.5) H 12/20/23 05:22 Plt Count 216 X10^3/uL (150.0-450.0) 12/20/23 05:22 Plt Count Comment Adequate (ADEQUATE) 12/20/23 05:22 MPV 7.2 fL (7.4-11.0) L 12/20/23 05:22 Neut % (Auto) 67.1 % (42.0-75.0) 12/20/23 05:22 Lymph % (Auto) 25.1 % (21.0-51.0) 12/20/23 05:22 [place] % (Auto) 5.6 % (0.0-13.0) 12/20/23 05:22 Eos % (Auto) 0.9 % (0.9-2.9) 12/20/23 05:22 Baso % (Auto) 1.3 % (0.2-1.0) H 12/20/23 05:22 Neut # (Auto) 6.9 x10^3/uL (2.2-4.8) H 12/20/23 05:22 Lymph # (Auto) 2.6 X10^3/uL (1.3-2.9) 12/20/23 05:22 [place] # (Auto) 0.6 x10^3/uL (0.3-0.8) 12/20/23 05:22 Eos # (Auto) 0.1 x10^3/uL (0.0-0.2) 12/20/23 05:22 Baso # (Auto) 0.1 X10^3/uL (0.0-0.1) 12/20/23 05:22 Absolute Nucleated RBC 0.1 /100WBC 12/20/23 05:22 Plt Morphology Comment Normal (NORMAL) 12/20/23 05:22 RBC Morphology Abnormal (NORMAL) A 12/20/23 05:22 Dimorphic RBCs Present 12/19/23 05:34 Hypochromasia Slight A 12/20/23 05:22 Poikilocytosis Slight A 12/20/23 05:22 Anisocytosis 2+ A 12/20/23 05:22 Microcytosis Slight A 12/20/23 05:22 Target Cells Slight A 12/20/23 05:22 Absolute Retic 0.0487 10^6/uL 12/18/23 17:53 Percent Retic 2.19 % (0.8-2.2) 12/18/23 17:53 Sodium 135 mmol/L (136-145) L 12/20/23 05:22 Corrected Sodium 135 mmol/L (136-145) L 12/20/23 05:22 Potassium 4.0 mmol/L (3.5-5.1) 12/20/23 05:22 Chloride 104 mmol/L (98-107) 12/20/23 05:22 Carbon Dioxide 22.5 mmol/L (21-32) 12/20/23 05:22 BUN 9 mg/dL (7-18) 12/20/23 05:22 Creatinine 0.66 mg/dL (0.55-1.02) 12/20/23 05:22 Est GFR (MDRD) Af Amer > 60 (>60) 12/20/23 05:22 Est GFR (MDRD) Non-Af > 60 (>60) 12/20/23 05:22 Glucose 114 mg/dL (65-99) H 12/20/23 05:22 Lactic Acid 1.2 mmol/L (0.4-2.0) 12/19/23 09:50 Calcium 8.4 mg/dL (8.5-10.1) L 12/20/23 05:22 Corrected Calcium 9.1 mg/dL (8.5-10.1) 12/20/23 05:22 Magnesium 1.8 mg/dL (2.0-2.9) L 12/20/23 05:22 Iron 8 ug/dL (50-175) L 12/18/23 17:53 TIBC 461 ug/dL (250-450) H 12/18/23 17:53 Transferrin 334 mg/dL (202-364) 12/18/23 17:53 Ferritin 3 ng/mL (8-252) L 12/18/23 17:53 Total Bilirubin 0.40 mg/dL (0.2-1.0) 12/20/23 05:22 AST 14 Units/L (15-37) L 12/20/23 05:22 ALT 14 Units/L (12-78) 12/20/23 05:22 Alkaline Phosphatase 54 Units/L (46-116) 12/20/23 05:22 Total Protein 6.7 g/dL (6.4-8.2) 12/20/23 05:22 Albumin 3.1 g/dL (3.4-5.0) L 12/20/23 05:22 Globulin 3.6 g/dL (2.5-4.5) 12/20/23 05:22 Albumin/Globulin Ratio 0.9 Ratio (1.1-2.1) L 12/20/23 05:22 Amylase 72 Units/L (25-115) 12/19/23 05:34 Lipase 69 Units/L (16-77) 12/19/23 05:34 Vitamin B12 474 pg/mL (193-986) 12/18/23 17:53 Folate 11.7 ng/mL (>8.6) 12/18/23 17:53 Stool Occult Blood Negative (NEGATIVE) 12/18/23 20:54 SARS-CoV-2 (PCR) Negative (NEGATIVE) 12/18/23 18:53 Blood Type A POSITIVE 12/18/23 18:43 Antibody Screen Negative 12/18/23 18:43 Crossmatch See Detail 12/18/23 18:43 Plan (1) Symptomatic anemia: Status: Acute (2) Abdominal pain: Status: Acute Qualifiers: Abdominal location: right lower quadrant Qualified Code(s): R10.31 - Right lower quadrant pain (3) Hypokalemia: Status: Acute (4) Hypomagnesemia: Status: Acute (5) Generalized weakness: Status: Acute (6) MAGGY (iron deficiency anemia): Status: Acute Qualifiers: Iron deficiency anemia type: inadequate dietary iron intake Qualified Code(s): D50.8 - Other iron deficiency anemias (7) Malignant hypertension: Status: Acute
[2023-12-20] MEDS ORDERED: NORVASC TAB 5 MG PO SCH (11:00)
[2023-12-20] MEDS: NORVASC TAB 10 MG PO SCH (15:26)
[2023-12-20 15:41] LABS: HEMATOCRIT 26.9 % (36.0-47.0); HEMOGLOBIN 8.8 g/dL (12.0-16.0)
[2023-12-20] MEDS: COLACE CAP 100 MG PO SCH (20:48)
[2023-12-21] MEDS: HIBICLENS WASH EXT ONE (03:56)
[2023-12-21 06:06] LABS: BASOPHILS # (AUTO) 0.1 X10^3/uL (0.0-0.1); BASOPHILS % (AUTO) 0.6 % (0.2-1.0); EOSINOPHILS # (AUTO) 0.1 x10^3/uL (0.0-0.2); EOSINOPHILS % (AUTO) 1.5 % (0.9-2.9); HEMATOCRIT 26.2 % (36.0-47.0); HEMOGLOBIN 8.6 g/dL (12.0-16.0); LYMPHOCYTES # (AUTO) 3.2 X10^3/uL (1.3-2.9); LYMPHOCYTES % (AUTO) 36.6 % (21.0-51.0); MEAN CORPUSCULAR HEMOGLOBIN 25.9 pg (27.0-34.0); MEAN CORPUSCULAR HGB CONC 32.6 g/dL (33.0-35.0); MEAN CORPUSCULAR VOLUME 79.4 fL (80.0-100.0); MEAN PLATELET VOLUME 7.2 fL (7.4-11.0); MONOCYTES # (AUTO) 0.6 x10^3/uL (0.3-0.8); MONOCYTES % (AUTO) 7.2 % (0.0-13.0); NEUTROPHILS # (AUTO) 4.7 x10^3/uL (2.2-4.8); NEUTROPHILS % (AUTO) 54.1 % (42.0-75.0); PLATELET COUNT 194 X10^3/uL (150.0-450.0); RED CELL DISTRIBUTION WIDTH 21.7 % (11.6-16.5); WHITE BLOOD COUNT 8.6 X10^3/uL (3.6-10.0)
[2023-12-21 06:19] LABS: ALANINE AMINOTRANSFERASE 14 Units/L (12-78); ALBUMIN 2.6 g/dL (3.4-5.0); ALKALINE PHOSPHATASE 50 Units/L (46-116); ASPARTATE AMINO TRANSFERASE 12 Units/L (15-37); BLOOD UREA NITROGEN 13 mg/dL (7-18); CALCIUM 8.1 mg/dL (8.5-10.1); CARBON DIOXIDE 24.9 mmol/L (21-32); CHLORIDE 107 mmol/L (98-107); COR CA(FOR HYPOALB) 9.2 mg/dL (8.5-10.1); CREATININE 0.74 mg/dL (0.55-1.02); GLUCOSE 94 mg/dL (65-99); MAGNESIUM 1.8 mg/dL (2.0-2.9); POTASSIUM 3.9 mmol/L (3.5-5.1); SODIUM 138 mmol/L (136-145); TOTAL PROTEIN 5.7 g/dL (6.4-8.2); eGFR NON BLACK RACES > 60 (>60)
[2023-12-21 06:38] LABS: ANISOCYTOSIS 1+; HYPOCHROMASIA SLIGHT; MICROCYTOSIS SLIGHT; PLATELET MORPHOLOGY COMMENT NORMAL (NORMAL)
[2023-12-21 08:07] VITALS: TEMP 98.6
--- NOTE | 2023-12-21 08:13 | US ---
EXAM:Gallbladder sonogramHISTORY:Right upper quadrant pain, nauseaTECHNIQUE:Multiple grayscale sonographic images were obtained.COMPARISON:CT abdomen pelvis 12/19/2023FINDINGS:The liver is normal in size and configuration and without cyst, mass, or biliary ductal dilatation. No gallstones are identified within the gallbladder. Gallbladder wall thickness is normal. Common duct measures 4.5 mm. Pancreas appears within normal limits. Right kidney measured 10.75 cm in length. It was unobstructed. No fluid identified in the niraj hepatis as was suggested on the recent CT.IMPRESSION:No significant sonographic abnormality identifiedNo evidence for cholelithiasis or cholecystitisTHIS IS AN ELECTRONICALLY VERIFIED FINAL REPORT12/21/2023 8:09 AM - Electronically signed by Mario Alberto Villagran MD
[2023-12-21] MEDS ORDERED: MILK OF MAGNESIA PO PRN (09:31)
[2023-12-21 12:11] VITALS: BP 106/54; PULSE 61; RESP 21; O2SAT 97
[2023-12-21] MEDS ORDERED: COLACE CAP 100 MG PO SCH (21:00)
== END 2023-12-21 14:50 | disposition home or self-care (01) ==
LOC: ER 16:17 → MED/SURG 16:17
PROVIDERS: ADMIT Family Medicine; ATTEND Family Medicine
DX: E83.42 Hypomagnesemia; D50.8 Other iron deficiency anemias; R10.31 Right lower quadrant pain; Z20.822 Contact with and (suspected) exposure to COVID-19; E87.6 Hypokalemia; R94.31 Abnormal electrocardiogram [ECG] [EKG]; R07.81 Pleurodynia; I10 Essential (primary) hypertension; R42 Dizziness and giddiness; R10.84 Generalized abdominal pain; R53.1 Weakness

== ENCOUNTER 2025-01-16 21:44 | Observation (INO) ==
[2025-01-16 22:35] LABS: MEAN PLATELET VOLUME 8.3 fL (7.4-11.0)
[2025-01-16 22:40] LABS: RED CELL DISTRIBUTION WIDTH 21.3 % (11.6-16.5)
[2025-01-16 22:46] LABS: PLATELET MORPHOLOGY COMMENT NORMAL (NORMAL)
[2025-01-16 22:47] LABS: CREATININE 0.79 mg/dL (0.55-1.02); eGFR NON BLACK RACES > 60 (>60)
[2025-01-16 22:56] LABS: BLOOD/HEMOGLOBIN,URINE NEGATIVE (NEGATIVE); LEUKOCYTE ESTERASE ,URINE NEGATIVE (NEGATIVE); NITRITES,URINE NEGATIVE (NEGATIVE)
[2025-01-16 22:57] LABS: APPEARANCE,URINE CLOUDY (CLEAR)
[2025-01-16 23:03] LABS: FINE GRANULAR CASTS,URINE FEW /LPF (NEGATIVE); SQUAMOUS EPITHELIAL CELL,UR FEW /HPF (NEGATIVE)
--- NOTE | 2025-01-16 23:55 | CT ---
PROCEDURE: CT Abdomen and Pelvis with IV Contrast. HISTORY: PT AMBULATORY IN ED W/ COMPLAINTS OF RUQ PAIN UNSURE OF HOW LONG STATES "I DONT KNOW IT JUST HURTS" REPORTS N/V AFTER EATING. ; HTN, ANEMIA SX: CSECTION . TECHNIQUE: Axial images were performed through the abdomen and pelvis with the administration of IV contrast with multiplanar reformations . Oral contrast was notadministered . Dose reduction techniques including Automated Exposure Control (AEC) and adjustment of mA and kV were utilized .. COMPARISON: 08/05/2024. TECHNICAL QUALITY: Satisfactory. FINDINGS: Clear lung bases. Several subcentimeter hypoattenuating densities in the liver that are nonspecific may represent small cysts. Spleen, adrenals, and pancreas show no abnormality. Kidneys show normal enhancement with no mass or obstruction. Normal biliary tract. No ascites or pneumoperitoneum. Minimal atherosclerosis aorta. No lymphadenopathy. No bowel obstruction or inflammation and normal appendix. Pelvis shows no masses or free fluid with unremarkable reproductive organs and urinary bladder. No acute bony abnormality. IMPRESSION: 1. Nonspecific hypoattenuating densities in the liver may represent small cysts. 2. No other significant abnormality identified. THIS IS AN ELECTRONICALLY VERIFIED FINAL REPORT 01/16/2025 11:52 PM - Electronically signed by Henrique Moralez MD
[2025-01-17] MEDS ORDERED: DILAUDID INJ ONE (00:03)
[2025-01-17] MEDS: NS 1,000 ML IV 1,000 ML IV SCH (00:06)
--- NOTE | 2025-01-17 00:07 | DR.NAUSEAF ---
HPI Time Seen Time Seen by Provider: 01/16/25 23:53 Primary Care Physician Primary Care Physician: vickie HPI Comment HPI Comment: Patient is very poor historian with very little to say when asked multiple questions that apparently has had this issue of anemia more than once it is thought to be due to Menometrorrhagia Complaints Chief Complaint Doctors Comments: Patient is going history of anemia comes in now with right upper quadrant abdominal pain going to the right lower quadrant denies fever or chills has also had nausea vomiting denies any diarrhea hematochezia or black bowel movements Chief Complaint:: PT AMBULATORY IN ED W/ COMPLAINTS OF RUQ PAIN UNSURE OF HOW LONG STATES "I DONT KNOW IT JUST HURTS" REPORTS N/V AFTER EATING. COVID-19 Coronavirus risk:travel/contact w/high risk person: No Has patient experienced Coronavirus symptoms: No Reviewed Nurses Notes Reviewed: Yes Source History Provided: Patient Mode of Arrival Mode of Arrival: Ambulatory Timing Onset of Chief Complaint: 01/16/25 Duration Duration: 2-3 Severity Number of episodes of vomiting over last 24 hours: 5 Context Onset: Spontaneous Possible Ingestion: Unknown : No History of: Abdominal Operation Quality Quality: Bilious Associated Signs and Symptoms Abdominal Pain Quality: Cramping and Sharp PMH PMH Past Medical History: Yes Past Medical History: Anemia and Hypertension Past Surgical History: Yes Surgical History: Family History History of Family Medical Conditions: Yes Family Medical History: Heart Failure and Hypertension Social History Does patient currently use any type of tobacco product: Yes Do you use any recreational Drugs:: No Travel Risk Coronavirus risk:travel/contact w/high risk person: No Has patient experienced Coronavirus symptoms: No Infectious screening In the last 2 months have you had wt loss of >10#?: NO Have you had fever, night sweats or hemotysis?: No Have you traveled outside the country in the last 6 months?: No Isolation: Standard ROS Review of Systems Constitutional: No Symptoms Reported Eyes: No Symptoms Reported ENTM: No Symptoms Reported Respiratoy: No Symptoms Reported Cardiovascular: No Symptoms Reported Gastrointestinal/Abdominal: See HPI, Abdominal Pain, Nausea and Vomiting; negative Diarrhea Genitourinary: No Symptoms Reported Neurological: No Symptoms Reported Musculoskeletal: No Symptoms Reported Integumentary: No Symptoms Reported Hematologic/Lymphatic: See HPI and Anemia Endocrine: No Symptoms Reported Psychiatric: No Symptoms Reported All Other Systems: Reviewed and Negative PE Vital Signs Vitals: Vital Signs Temperature 98.9 F Pulse Rate 66 Pulse Rate 88 Respiratory Rate 20 Respiratory Rate 20 Blood Pressure 176/80 O2 Sat by Pulse Oximetry 100 O2 Sat by Pulse Oximetry 98 General Limitations: No Limitations General Appearance: Alert and In No Apparent Distress Head Head Exam: Normal Inspection Eyes Eye exam: Normal Appearance ENT ENT Exam: Normal Exam Neck Neck Exam: Normal Inspection Chest Chest Inspection: Normal Inspection Respiratory Respiratory Exam: Normal Lung Sounds Bilat Respiratory Exam: Bilateral: Clear to Auscultation Cardiovascular Cardiovascular Exam: Regular Rate and Normal Rhythm Abdominal Exam Abdominal Exam: Normal Inspection, Tenderness, Guarding and Hypoactive Bowel Sounds; negative Organomegaly, Trauma or Pulsatile Mass Rectal Rectal Exam: Deferred External Exam: Female: Deferred : Speculum Exam (Female): Deferred : Bimanual Exam (female): Deferred Extremities Extremities Exam: Normal Inspection Back Back Exam: Normal Inspection Neurologic Neurological Exam: Alert and Oriented X3 Psychiatric Psychiatric Exam: Normal Affect and Normal Mood Skin Skin Exam: Pallor; negative Cyanosis MDM Additional Information Obtained Additional Information Obtained From: Old Records Differential Diagnosis Differential Diagnosis: Considerations may Include:: Appendicitis, Cholecystitis and Gastritis ROR Labs Reviewed 01/16/25 22:20 01/16/25 22:20 Laboratory: WBC 8.2 X10^3/uL (3.6-10.0) 01/16/25 22:20 RBC 4.19 X10^6/uL (3.5-5.4) 01/16/25 22:20 Hgb 6.7 g/dL (12.0-16.0) L* 01/16/25 22:20 Hct 24.0 % (36.0-47.0) L 01/16/25 22:20 MCV 57.3 fL (80.0-100.0) L 01/16/25 22:20 MCH 16.0 pg (27.0-34.0) L 01/16/25 22:20 MCHC 27.9 g/dL (33.0-35.0) L 01/16/25 22:20 RDW 21.3 % (11.6-16.5) H 01/16/25 22:20 Plt Count 464 X10^3/uL (150.0-450.0) H 01/16/25 22:20 Plt Count Comment Increased (ADEQUATE) A 01/16/25 22:20 MPV 8.3 fL (7.4-11.0) 01/16/25 22:20 Neut % (Auto) 55.6 % (42.0-75.0) 01/16/25 22:20 Lymph % (Auto) 38.6 % (21.0-51.0) 01/16/25 22:20 [place] % (Auto) 3.9 % (0.0-13.0) 01/16/25 22:20 Eos % (Auto) 0.7 % (0.9-2.9) L 01/16/25 22:20 Baso % (Auto) 1.2 % (0.2-1.0) H 01/16/25 22:20 Neut # (Auto) 4.6 x10^3/uL (2.2-4.8) 01/16/25 22:20 Lymph # (Auto) 3.2 X10^3/uL (1.3-2.9) H 01/16/25 22:20 [place] # (Auto) 0.3 x10^3/uL (0.3-0.8) 01/16/25 22:20 Eos # (Auto) 0.1 x10^3/uL (0.0-0.2) 01/16/25 22:20 Baso # (Auto) 0.1 X10^3/uL (0.0-0.1) 01/16/25 22:20 Absolute Nucleated RBC 0.2 /100WBC 01/16/25 22:20 Plt Morphology Comment Normal (NORMAL) 01/16/25 22:20 RBC Morphology Abnormal (NORMAL) A 01/16/25 22:20 Hypochromasia 3+ A 01/16/25 22:20 Poikilocytosis Slight A 01/16/25 22:20 Anisocytosis 1+ A 01/16/25 22:20 Microcytosis 3+ A 01/16/25 22:20 Target Cells Slight A 01/16/25 22:20 Tear Drop Cells Slight A 01/16/25 22:20 Ovalocytes Slight A 01/16/25 22:20 Sodium 135 mmol/L (136-145) L 01/16/25 22:20 Corrected Sodium TNP 01/16/25 22:20 Potassium 3.6 mmol/L (3.5-5.1) 01/16/25 22:20 Chloride 100 mmol/L (98-107) 01/16/25 22:20 Carbon Dioxide 28.6 mmol/L (21-32) 01/16/25 22:20 BUN 10 mg/dL (7-18) 01/16/25 22:20 Creatinine 0.79 mg/dL (0.55-1.02) 01/16/25 22:20 Est GFR (MDRD) Af Amer > 60 (>60) 01/16/25 22:20 Est GFR (MDRD) Non-Af > 60 (>60) 01/16/25 22:20 Glucose 105 mg/dL (65-99) H 01/16/25 22:20 Calcium 9.6 mg/dL (8.5-10.1) 01/16/25 22:20 Corrected Calcium TNP 01/16/25 22:20 Total Bilirubin 0.40 mg/dL (0.2-1.0) 01/16/25 22:20 AST 16 Units/L (15-37) 01/16/25 22:20 ALT 20 Units/L (12-78) 01/16/25 22:20 Alkaline Phosphatase 77 Units/L (46-116) 01/16/25 22:20 Total Protein 8.6 g/dL (6.4-8.2) H 01/16/25 22:20 Albumin 4.3 g/dL (3.4-5.0) 01/16/25 22:20 Globulin 4.3 g/dL (2.5-4.5) 01/16/25 22:20 Albumin/Globulin Ratio 1.0 Ratio (1.1-2.1) L 01/16/25 22:20 Amylase 60 Units/L (25-115) 01/16/25 22:20 Lipase 45 Units/L (16-77) 01/16/25 22:20 Specimen Type Clean catch urine 01/16/25 22:45 Urine Color Yellow (YELLOW) 01/16/25 22:45 Urine Appearance Cloudy (CLEAR) 01/16/25 22:45 Urine pH 7.0 (5.0 - 8.0) 01/16/25 22:45 Ur Specific [place] 1.015 (1.000-1.030) 01/16/25 22:45 Urine Protein 3+ (NEGATIVE) 01/16/25 22:45 Urine Glucose (UA) Negative (NEGATIVE) 01/16/25 22:45 Urine Ketones 1+ (NEGATIVE) 01/16/25 22:45 Urine Blood Negative (NEGATIVE) 01/16/25 22:45 Urine Nitrite Negative (NEGATIVE) 01/16/25 22:45 Urine Bilirubin Negative (NEGATIVE) 01/16/25 22:45 Urine Urobilinogen 2+ (NORMAL) 01/16/25 22:45 Ur Leukocyte Esterase Negative (NEGATIVE) 01/16/25 22:45 Urine RBC 0-2 /HPF (0-3) 01/16/25 22:45 Urine WBC 0-2 /HPF (0-5) 01/16/25 22:45 Ur Squamous Epith Cells Few /HPF (NEGATIVE) 01/16/25 22:45 Ur Renal Epithelial Cell Moderate /HPF (NEGATIVE) 01/16/25 22:45 Amorphous Sediment 3+ /HPF (NEGATIVE) 01/16/25 22:45 Urine Bacteria Negative /HPF (NEGATIVE) 01/16/25 22:45 Fine Granular Casts Few /LPF (NEGATIVE) 01/16/25 22:45 Ur Culture Indicated? No/not indicated 01/16/25 22:45 Blood Type A POSITIVE 01/16/25 23:03 Antibody Screen Negative 01/16/25 23:03 Opioid Opioid Risk Tool Age (Robert box if 16-45): Yes History of Preadolescent Sexual Abuse: No Total: 1 Total Score Risk Category: Low Risk Copyright: Kevin BOGGS predicting aberrant behaviors Discharge Plan Discharge Plan Patient Disposition: 01 HOME, SELF-CARE Condition: Stable Prescriptions: No Action tramadol 50 mg tablet 50 mg PO BID MDD 2 PRN (Reason: pain) 15 Days Qty: 30 0RF pantoprazole 40 mg tablet,delayed release (DR/EC) 40 mg PO QDAY 30 Days Qty: 30 3RF ferrous sulfate 325 mg (65 mg iron) tablet 325 mg PO QDAY Qty: 30 3RF docusate sodium [Stool Softener] 100 mg capsule 100 mg PO QDAY PRN (Reason: constipation) Qty: 30 3RF amlodipine 10 mg tablet 10 mg PO DAILY Qty: 30 3RF tramadol 50 mg tablet 50 mg PO BID MDD 2 PRN (Reason: pain) Qty: 7 0RF Health Concerns: Post Hospitalization: new medications and changes needed to prevent readmission or further decline. Pt educated and given instructions on all concerns. Plan of Treatment: Continue with present treatment and follow up plan. Pt is to keep follow up appointment as instructed and take medications as ordered. Follow ups/Referrals Follow ups/Referrals: NFD,None [Primary Care Provider] - 3 days Instructions Stand Alone Forms: Find Help Web Site, Post Hospital Follow Up Care Print Language: BAHRAINI
[2025-01-17] MEDS: ZOFRAN INJ 4 MG VIAL IVP ONE ×2 (00:09→04:35)
[2025-01-17] MEDS: DILAUDID INJ IVP ONE (00:09)
[2025-01-17] MEDS: APRESOLINE INJ 20 MG VIAL IVP ONE ×3 (00:33→16:11)
[2025-01-17] MEDS: NS 500 ML IV 500 ML IV ONE (01:51)
[2025-01-17 01:55] VITALS: BMI 24.0
[2025-01-17] MEDS: CONSULT PHARMACY - POTASSIUM & MAGNESIUM XX SCH (02:00)
[2025-01-17] MEDS: K-DUR TAB 20 MEQ PO SCH (02:27)
[2025-01-17] MEDS: ULTRAM PO PRN (02:27)
[2025-01-17] MEDS: DILAUDID INJ IVP PRN (06:06)
[2025-01-17] MEDS: CATAPRES TAB 0.1 MG PO ONE (08:07)
--- NOTE | 2025-01-17 08:17 | EKG ---
Test Reason : BP 178/98, HTN protocol Blood Pressure : */* mmHG Vent. Rate : 66 BPM Atrial Rate : 66 BPM P-R Int : 146 ms QRS Dur : 78 ms QT Int : 406 ms P-R-T Axes : 45 51 72 degrees QTc Int : 425 ms Normal sinus rhythm with sinus arrhythmia Minimal voltage criteria for LVH, may be normal variant ( Sokolow-Tucker ) Septal infarct , age undetermined Abnormal ECG When compared with ECG of 19-DEC-2023 04:25, Nonspecific T wave abnormality no longer evident in Lateral leads Confirmed by Domenic Kidd MD ([id number]) on 01/17/2025 10:22:38 AM Referred By: Confirmed By: Domenic Kidd MD
[2025-01-17] MEDS: FERROUS GLUCONATE PO SCH (08:20)
[2025-01-17] MEDS: PROTONIX TAB 40 MG PO SCH (08:20)
[2025-01-17] MEDS: NORVASC TAB 10 MG PO SCH (08:20)
--- NOTE | 2025-01-17 09:53 | DR.H&P ---
H&P History & Physical for Day of: H&P Date: 01/17/25 Chief Complaint Chief Complaint: abdominal pain weakness History of Present Illness History of Present Illness: Patient is a 44-year-old female with a past medical history of iron deficiency anemia, hypertension, presenting with weakness and abdominal pain. She reports a history of having heavy menstrual cycles. She reports having fatigue and some weakness. She is reporting some abdominal pain. Denies any signs of bleeding. Denies fevers or chills. Labs/imaging: WBC 8.2, hemoglobin 6.7, platelets 464, sodium 135, potassium 3.6, creatinine 0.79, glucose 105, UA negative, CT abdomen pelvis was obtained that revealed possible liver cyst. No other intraabdominal findings. Patient was admitted for symptomatic anemia. This is likely due to menorrhagia. Will consult gynecology for further evaluation. Otherwise, we will type and cross and transfuse to units of packed red blood cells. Order anemia panel. Continue with IV fluids. Order GI cocktail. Patient has been hypertensive. Restart home medications. Will also add on losartan 25 mg daily. Otherwise continue with current treatment plan. Continue closely monitor and follow-up labs/imaging. Past Medical History Past Medical History: Anemia and Hypertension Past Surgical History Surgical History: Family History Family Medical History: Heart Failure Social History Does patient currently use any type of tobacco product: Yes Type of Tobacco Use: Cigarettes How many years tobacco product used: 28 Does any household member use tobacco: Yes Alcohol Use: None Drug Use: None Allergies Allergies Allergy/AdvReac Type Severity Reaction Status Date / Time Penicillins Allergy Verified 12/06/18 14:30 Labs 01/16/25 22:20 01/16/25 22:20 Labs: Laboratory WBC 8.2 X10^3/uL (3.6-10.0) 01/16/25 22:20 RBC 4.19 X10^6/uL (3.5-5.4) 01/16/25 22:20 Hgb 6.7 g/dL (12.0-16.0) L* 01/16/25 22:20 Hct 24.0 % (36.0-47.0) L 01/16/25 22:20 MCV 57.3 fL (80.0-100.0) L 01/16/25 22:20 MCH 16.0 pg (27.0-34.0) L 01/16/25 22:20 MCHC 27.9 g/dL (33.0-35.0) L 01/16/25 22:20 RDW 21.3 % (11.6-16.5) H 01/16/25 22:20 Plt Count 464 X10^3/uL (150.0-450.0) H 01/16/25 22:20 Plt Count Comment Increased (ADEQUATE) A 01/16/25: MPV 8.3 fL (7.4-11.0) 01/16/25 22:20 Neut % (Auto) 55.6 % (42.0-75.0) 01/16/25 22:20 Lymph % (Auto) 38.6 % (21.0-51.0) 01/16/25 22:20 [place] % (Auto) 3.9 % (0.0-13.0) 01/16/25 22:20 Eos % (Auto) 0.7 % (0.9-2.9) L 01/16/25:20 Baso % (Auto) 1.2 % (0.2-1.0) H 01/16/25 22:20 Neut # (Auto) 4.6 x10^3/uL (2.2-4.8) 01/16/25 22:20 Lymph # (Auto) 3.2 X10^3/uL (1.3-2.9) H 01/16/25 22:20 [place] # (Auto) 0.3 x10^3/uL (0.3-0.8) 01/16/25 22:20 Eos # (Auto) 0.1 x10^3/uL (0.0-0.2) 01/16/25 22:20 Baso # (Auto) 0.1 X10^3/uL (0.0-0.1) 01/16/25:20 Absolute Nucleated RBC 0.2 /100WBC 01/16/25 22:20 Plt Morphology Comment Normal (NORMAL) 01/16/25:20 RBC Morphology Abnormal (NORMAL) A 01/16/25 22:20 Hypochromasia 3+ A 01/16/25:20 Poikilocytosis Slight A 10/16/25 22:20 Anisocytosis 1+ A 01/16/25 22:20 Microcytosis 3+ A 01/16/25 22:20 Target Cells Slight A 01/16/25 22:20 Tear Drop Cells Slight A 01/16/25 22:20 Ovalocytes Slight A 01/16/25 22:20 Sodium 135 mmol/L (136-145) L 01/16/25 22:20 Corrected Sodium TNP 01/16/25 22:20 Potassium 3.6 mmol/L (3.5-5.1) 01/16/25 22:20 Chloride 100 mmol/L (98-107) 01/16/25 22:20 Carbon Dioxide 28.6 mmol/L (21-32) 01/16/25 22:20 BUN 10 mg/dL (7-18) 01/16/25 22:20 Creatinine 0.79 mg/dL (0.55-1.02) 01/16/25 22:20 Est GFR (MDRD) Af Amer > 60 (>60) 01/16/25 22:20 Est GFR (MDRD) Non-Af > 60 (>60) 01/16/25 22:20 Glucose 105 mg/dL (65-99) H 01/16/25 22:20 Calcium 9.6 mg/dL (8.5-10.1) 01/16/25 22:20 Corrected Calcium TNP 01/16/25 22:20 Total Bilirubin 0.40 mg/dL (0.2-1.0) 01/16/25 22:20 AST 16 Units/L (15-37) 01/16/25 22:20 ALT 20 Units/L (12-78) 01/16/25 22:20 Alkaline Phosphatase 77 Units/L (46-116) 01/16/25 22:20 Total Protein 8.6 g/dL (6.4-8.2) H 01/16/25 22:20 Albumin 4.3 g/dL (3.4-5.0) 01/16/25 22:20 Globulin 4.3 g/dL (2.5-4.5) 01/16/25 22:20 Albumin/Globulin Ratio 1.0 Ratio (1.1-2.1) L 01/16/25 22:20 Amylase 60 Units/L (25-115) 01/16/25 22:20 Lipase 45 Units/L (16-77) 01/16/25 22:20 Specimen Type Clean catch urine 01/16/25: Urine Color Yellow (YELLOW) 01/16/25: Urine Appearance Cloudy (CLEAR) 01/16/25: Urine pH 7.0 (5.0 - 8.0) 01/16/25:45 Ur Specific [place] 1.015 (1.000-1.030) 01/16/25: Urine Protein 3+ (NEGATIVE) 01/16/25: Urine Glucose (UA) Negative (NEGATIVE) 01/16/25: Urine Ketones 1+ (NEGATIVE) 01/16/25: Urine Blood Negative (NEGATIVE) 01/16/25: Urine Nitrite Negative (NEGATIVE) 01/16/25: Urine Bilirubin Negative (NEGATIVE) 01/16/25: Urine Urobilinogen 2+ (NORMAL) 01/16/25:45 Ur Leukocyte Esterase Negative (NEGATIVE) 01/16/25: Urine RBC 0-2 /HPF (0-3) 01/16/25:45 Urine WBC 0-2 /HPF (0-5) 01/16/25:45 Ur Squamous Epith Cells Few /HPF (NEGATIVE) 01/16/25:45 Ur Renal Epithelial Cell Moderate /HPF (NEGATIVE) 01/16/25: Amorphous Sediment 3+ /HPF (NEGATIVE) 01/16/25:45 Urine Bacteria Negative /HPF (NEGATIVE) 01/16/25: Fine Granular Casts Few /LPF (NEGATIVE) 01/16/25:45 Ur Culture Indicated? No/not indicated 01/16/25:45 Urine Opiates Screen Negative (NEG=<300) 01/16/25:45 Urine Methadone Screen Negative (NEG=<300) 01/16/25:45 Ur Barbiturates Screen Negative (NEG=<200) 01/16/25: Ur Phencyclidine Scrn Negative (NEG=<25) 01/16/25:45 Ur Amphetamines Screen Negative (NEG=<1000) 01/16/25:45 U Benzodiazepines Scrn Negative (NEG=<200) 01/16/25:45 Urine Cocaine Screen Negative (NEG=<300) 10/16/25 22:45 U Marijuana (THC) Screen Negative (NEG=<50) 01/16/25 22:45 Blood Type A POSITIVE 01/16/25 23:03 Antibody Screen Negative 01/16/25 23:03 Crossmatch See Detail 01/16/25 23:03 Review of Systems Constitutional: Weakness Eyes: No Symptoms Reported ENT: No Symptoms Reported Respiratory: No Symptoms Reported Cardiovascular: No Symptoms Reported Gastrointestinal: Abdominal Pain Genitourinary: No Symptoms Reported Musculoskeletal: No Symptoms Reported Skin: No Symptoms Reported Neurological: No Symptoms Reported Physical Exam Vital Signs: Vital Signs Temperature 98.3 F Temperature 98.2 F Pulse Rate [Right Radial] 66 Pulse Rate [Right Radial] 91 Respiratory Rate 16 Respiratory Rate 17 Respiratory Rate 20 Respiratory Rate 19 Respiratory Rate 19 Respiratory Rate 17 Blood Pressure [Left Arm] 178/98 Blood Pressure [Left Arm] 121/68 Blood Pressure [Left Arm] 174/84 Blood Pressure [Left Arm] 168/84 O2 Sat by Pulse Oximetry 100 O2 Sat by Pulse Oximetry 100 Oriented: Normal Eyes: Normal Ear: Normal Nose: Normal Throat: Normal Respiratory: Clear Throughout Cardiovascular: Normal : Normal Auscultation: Bowel Sounds: Normal Palpation: Normal Tenderness: Normal Skin: Normal Musculoskeletal: Normal Psychiatric: Normal Mood Description: Calm and Appropriate Affect: Normal Speech Pattern: Clear and Appropriate Assessment/Plan (1) Symptomatic anemia: Status: Acute Plan: Transfuse 2 units packed red blood cells order anemia panel (2) MAGGY (iron deficiency anemia): Qualifiers: Iron deficiency anemia type: inadequate dietary iron intake Qualified Code(s): D50.8 - Other iron deficiency anemias Status: Acute (3) Hypertension: Qualifiers: Hypertension type: primary hypertension Qualified Code(s): I10 - Essential (primary) hypertension Status: Acute Plan: start on losartan. continue amlodipine. (4) GERD (gastroesophageal reflux disease): Qualifiers: Esophagitis presence: esophagitis presence not specified Qualified Code(s): K21.9 - Gastro-esophageal reflux disease without esophagitis Status: Acute Review H&P Reviewed: Yes Patient was examined?: Yes
[2025-01-17] MEDS: LEVSIN/MAALOX/LIDOC VISC PO SCH (09:54)
[2025-01-17] MEDS: COZAAR PO SCH (09:54)
[2025-01-17 16:30] LABS: COR NA(FOR HYPERGLY) 135 mmol/L (136-145); CREATININE 0.61 mg/dL (0.55-1.02); eGFR NON BLACK RACES > 60 (>60)
[2025-01-17 16:33] LABS: MEAN PLATELET VOLUME 8.3 fL (7.4-11.0); RED CELL DISTRIBUTION WIDTH 27.4 % (11.6-16.5)
[2025-01-17 16:51] LABS: PLATELET MORPHOLOGY COMMENT NORMAL (NORMAL)
[2025-01-18] MEDS: TYLENOL 325 MG TAB PO PRN (04:15)
--- NOTE | 2025-01-18 05:04 | EKG ---
Test Reason : HYPERTENSION PROTOCOL Blood Pressure : */* mmHG Vent. Rate : 51 BPM Atrial Rate : 51 BPM P-R Int : 142 ms QRS Dur : 80 ms QT Int : 460 ms P-R-T Axes : 1 33 57 degrees QTc Int : 423 ms Sinus bradycardia Septal infarct (cited on or before 17-JAN-2025) Abnormal ECG When compared with ECG of 17-JAN-2025 08:14, No significant change was found Confirmed by Domenic Kidd MD ([id number]) on 01/18/2025 8:15:12 AM Referred By: Confirmed By: Domenic Kidd MD
[2025-01-18] MEDS: CATAPRES TAB 0.1 MG PO ONE (05:09)
[2025-01-18 06:47] LABS: MEAN PLATELET VOLUME 8.4 fL (7.4-11.0); RED CELL DISTRIBUTION WIDTH 26.7 % (11.6-16.5)
[2025-01-18 06:55] LABS: CREATININE 0.76 mg/dL (0.55-1.02); eGFR NON BLACK RACES > 60 (>60)
[2025-01-18 08:14] LABS: PLATELET MORPHOLOGY COMMENT NORMAL (NORMAL)
[2025-01-18] MEDS: PROVERA PO SCH (08:40)
[2025-01-18] MEDS: MILK OF MAGNESIA PO PRN (08:40)
[2025-01-18] MEDS: COLACE CAP 100 MG PO PRN (08:40)
[2025-01-18] MEDS: MICARDIS PO SCH (11:21)
[2025-01-18] MEDS: HYDROCHLOROTHIAZIDE 12.5 MG CAP PO SCH (11:21)
[2025-01-18] MEDS: NS 100 ML IV 100 ML with VENOFER 400 MG IV ONE (11:22)
[2025-01-18] MEDS: NS 100 ML IV 100 ML ONE (19:05)
[2025-01-18] MEDS: OMNIPAQUE 350 mg/mL 100 mL BTL 100 ML ONE (19:05)
[2025-01-18] MEDS: NS 500 ML IV 500 ML IV ONE (19:06)
[2025-01-19 04:55] LABS: MEAN PLATELET VOLUME 8.3 fL (7.4-11.0); RED CELL DISTRIBUTION WIDTH 26.7 % (11.6-16.5)
[2025-01-19 05:06] LABS: COR CA(FOR HYPOALB) 9.5 mg/dL (8.5-10.1); CREATININE 0.61 mg/dL (0.55-1.02); eGFR NON BLACK RACES > 60 (>60)
[2025-01-19 05:17] LABS: PLATELET MORPHOLOGY COMMENT NORMAL (NORMAL)
[2025-01-19] MEDS: NS 100 ML IV 100 ML with VENOFER 400 MG IV ONE (08:56)
[2025-01-19] MEDS: NORVASC TAB 5 MG PO SCH (08:58)
[2025-01-19] MEDS: NORCO 5/325 MG TAB PO PRN (17:02)
[2025-01-19] MEDS: NS 500 ML IV 500 ML IV ONE ×2 (18:59)
[2025-01-19] MEDS: COLACE CAP 100 MG PO PRN (20:57)
[2025-01-20 06:28] LABS: MEAN PLATELET VOLUME 8.3 fL (7.4-11.0); RED CELL DISTRIBUTION WIDTH 26.5 % (11.6-16.5)
[2025-01-20 06:41] LABS: COR CA(FOR HYPOALB) 9.3 mg/dL (8.5-10.1); CREATININE 0.77 mg/dL (0.55-1.02); eGFR NON BLACK RACES > 60 (>60)
[2025-01-20 07:28] LABS: PLATELET MORPHOLOGY COMMENT NORMAL (NORMAL)
[2025-01-20 09:17] VITALS: TEMP 98.2
[2025-01-20 12:16] VITALS: BP 132/70; PULSE 56; RESP 20; O2SAT 99
--- NOTE | 2025-01-21 10:05 | W.DIS.FURT ---
Summary of Discharge Discharge Summary of Date Date of Exam: 01/20/25 Admission Date Date of Admission: 01/17/25 Admission Diagnosis Patient Problems (Updated 01/17/25 @ 09:50 by Buster Pereira MD) Anemia (Acute) D64.9 Hospital Course: Patient is a 44-year-old female with a past medical history of iron deficiency anemia, hypertension, presenting with weakness and abdominal pain. She reports a history of having heavy menstrual cycles. She reports having fatigue and some weakness. She is reporting some abdominal pain. Denies any signs of bleeding. Denies fevers or chills. Labs/imaging: WBC 8.2, hemoglobin 6.7, platelets 464, sodium 135, potassium 3.6, creatinine 0.79, glucose 105, UA negative, CT abdomen pelvis was obtained that revealed possible liver cyst. No other intraabdominal findings. Patient was admitted for symptomatic anemia. This is likely due to menorrhagia. Her labs are monitored daily and electrolytes replaced as needed. She was transfused 2 units PRBCs. BAKERY HELPER was consulted for further recommendations. Patient also had elevated blood pressure, BP meds were adjusted accordingly. BAKERY HELPER recommended adding Provera to help control with bleeding. She will need to follow-up outpatient for ultrasound. Patient's menstrual bleeding did decrease and she was feeling better. Her hemoglobin did trend down to 7.5, she required 2 more units of blood. She was also given iron infusion. She was feeling better and ambulating in the room. She was stable for discharge. She will need to follow-up with BAKERY HELPER and PCP as scheduled. Vital Signs: Vital Signs (72 hours) 01/17/25 10:31 01/17/25 10:54 01/17/25 11:33 Temperature Pulse Rate Pulse Rate [Right Radial] Respiratory Rate 18 Blood Pressure [Left Arm] 182/88 141/75 O2 Sat by Pulse Oximetry Oxygen Delivery Method FIO2% 01/17/25 12:16 01/17/25 13:43 01/17/25 14:43 Temperature 98.4 F Pulse Rate Pulse Rate [Right Radial] 67 Respiratory Rate 18 18 18 Blood Pressure [Left Arm] 162/81 O2 Sat by Pulse Oximetry 100 Oxygen Delivery Method Room Air FIO2% 01/17/25 15:13 01/17/25 15:43 01/17/25 16:35 Temperature 98.0 F Pulse Rate Pulse Rate [Right Radial] 54 L Respiratory Rate 18 19 16 Blood Pressure [Left Arm] 156/97 O2 Sat by Pulse Oximetry 99 Oxygen Delivery Method Room Air FIO2% 01/17/25 18:05 01/17/25 19:00 01/17/25 19:05 Temperature Pulse Rate Pulse Rate [Right Radial] Respiratory Rate 19 17 Blood Pressure [Left Arm] O2 Sat by Pulse Oximetry Oxygen Delivery Method Room Air FIO2% 01/17/25 19:39 01/17/25 20:15 01/17/25 21:14 Temperature 98.7 F Pulse Rate Pulse Rate [Right Radial] 62 Respiratory Rate 14 16 20 Blood Pressure [Left Arm] 122/63 O2 Sat by Pulse Oximetry 100 Oxygen Delivery Method Room Air FIO2% 01/17/25 21:15 01/17/25 21:30 01/17/25 22:14 Temperature Pulse Rate Pulse Rate [Right Radial] Respiratory Rate 17 16 Blood Pressure [Left Arm] O2 Sat by Pulse Oximetry Oxygen Delivery Method Room Air FIO2% 01/17/25 22:55 01/17/25 23:25 01/18/25 00:00 Temperature 98.3 F Pulse Rate Pulse Rate [Right Radial] 60 Respiratory Rate 18 16 14 Blood Pressure [Left Arm] 152/72 O2 Sat by Pulse Oximetry 99 Oxygen Delivery Method Room Air FIO2% 01/18/25 01:43 01/18/25 02:43 01/18/25 03:06 Temperature Pulse Rate Pulse Rate [Right Radial] Respiratory Rate 16 17 18 Blood Pressure [Left Arm] O2 Sat by Pulse Oximetry Oxygen Delivery Method FIO2% 01/18/25 03:36 01/18/25 03:59 01/18/25 04:15 Temperature 98.1 F Pulse Rate Pulse Rate [Right Radial] 61 Respiratory Rate 15 15 15 Blood Pressure [Left Arm] 176/86 O2 Sat by Pulse Oximetry 99 Oxygen Delivery Method Room Air FIO2% 01/18/25 04:15 01/18/25 05:15 01/18/25 05:30 Temperature Pulse Rate Pulse Rate [Right Radial] Respiratory Rate 17 Blood Pressure [Left Arm] 184/92 141/75 O2 Sat by Pulse Oximetry Oxygen Delivery Method FIO2% 01/18/25 07:49 01/18/25 08:21 01/18/25 08:33 Temperature 98.1 F Pulse Rate Pulse Rate [Right Radial] 57 L Respiratory Rate 16 18 Blood Pressure [Left Arm] 107/63 O2 Sat by Pulse Oximetry 99 Oxygen Delivery Method Room Air Room Air FIO2% 01/18/25 08:41 01/18/25 08:45 01/18/25 09:11 Temperature Pulse Rate Pulse Rate [Right Radial] Respiratory Rate 18 18 Blood Pressure [Left Arm] O2 Sat by Pulse Oximetry Oxygen Delivery Method Room Air FIO2% 01/18/25 09:33 01/18/25 11:24 01/18/25 11:48 Temperature 98.7 F Pulse Rate Pulse Rate [Right Radial] 57 L Respiratory Rate 19 18 17 Blood Pressure [Left Arm] 132/70 O2 Sat by Pulse Oximetry 100 Oxygen Delivery Method Room Air FIO2% 01/18/25 12:24 01/18/25 14:23 01/18/25 15:23 Temperature Pulse Rate Pulse Rate [Right Radial] Respiratory Rate 18 17 18 Blood Pressure [Left Arm] O2 Sat by Pulse Oximetry Oxygen Delivery Method FIO2% 01/18/25 15:46 01/18/25 17:57 01/18/25 17:59 Temperature 98.7 F Pulse Rate Pulse Rate [Right Radial] 58 L Respiratory Rate 16 19 19 Blood Pressure [Left Arm] 116/58 O2 Sat by Pulse Oximetry 100 Oxygen Delivery Method Room Air FIO2% 01/18/25 19:00 01/18/25 20:00 01/18/25 21:00 Temperature 98.4 F Pulse Rate Pulse Rate [Right Radial] 60 Respiratory Rate 15 Blood Pressure [Left Arm] 96/47 103/53 O2 Sat by Pulse Oximetry 100 Oxygen Delivery Method Room Air Room Air FIO2% 21 01/18/25 21:18 01/18/25 21:20 01/18/25 22:18 Temperature Pulse Rate Pulse Rate [Right Radial] Respiratory Rate 21 18 Blood Pressure [Left Arm] O2 Sat by Pulse Oximetry Oxygen Delivery Method Room Air FIO2% 01/19/25 00:00 01/19/25 00:16 01/19/25 00:46 Temperature 98.1 F Pulse Rate Pulse Rate [Right Radial] 61 Respiratory Rate 18 21 17 Blood Pressure [Left Arm] 107/56 O2 Sat by Pulse Oximetry 100 Oxygen Delivery Method Room Air FIO2% 01/19/25 03:48 01/19/25 06:15 01/19/25 06:45 Temperature 98.0 F Pulse Rate Pulse Rate [Right Radial] 52 L Respiratory Rate 18 19 18 Blood Pressure [Left Arm] 121/64 O2 Sat by Pulse Oximetry 100 Oxygen Delivery Method Room Air FIO2% 01/19/25 08:10 01/19/25 08:21 01/19/25 08:57 Temperature 99.6 F Pulse Rate Pulse Rate [Right Radial] 68 Respiratory Rate 16 18 Blood Pressure [Left Arm] 115/58 O2 Sat by Pulse Oximetry 100 Oxygen Delivery Method Room Air Room Air FIO2% 01/19/25 08:58 01/19/25 09:16 01/19/25 09:57 Temperature Pulse Rate Pulse Rate [Right Radial] Respiratory Rate 18 18 Blood Pressure [Left Arm] O2 Sat by Pulse Oximetry Oxygen Delivery Method Room Air FIO2% 21 01/19/25 09:58 01/19/25 11:44 01/19/25 13:05 Temperature 99.0 F Pulse Rate Pulse Rate [Right Radial] 64 Respiratory Rate 18 16 19 Blood Pressure [Left Arm] 147/65 O2 Sat by Pulse Oximetry 99 Oxygen Delivery Method Room Air FIO2% 01/19/25 14:05 01/19/25 14:15 01/19/25 15:03 Temperature Pulse Rate Pulse Rate [Right Radial] Respiratory Rate 19 19 20 Blood Pressure [Left Arm] O2 Sat by Pulse Oximetry Oxygen Delivery Method FIO2% 01/19/25 15:15 01/19/25 16:03 01/19/25 17:01 Temperature Pulse Rate Pulse Rate [Right Radial] Respiratory Rate 19 20 20 Blood Pressure [Left Arm] O2 Sat by Pulse Oximetry Oxygen Delivery Method FIO2% 01/19/25 17:02 01/19/25 17:18 01/19/25 18:02 Temperature 98.7 F Pulse Rate Pulse Rate [Right Radial] 61 Respiratory Rate 20 19 20 Blood Pressure [Left Arm] 135/72 O2 Sat by Pulse Oximetry 99 Oxygen Delivery Method Room Air FIO2% 01/19/25 19:00 01/19/25 20:00 01/19/25 20:57 Temperature 98.5 F Pulse Rate Pulse Rate [Right Radial] 52 L Respiratory Rate 24 22 Blood Pressure [Left Arm] 146/71 O2 Sat by Pulse Oximetry 98 Oxygen Delivery Method Room Air Room Air FIO2% 21 01/19/25 20:57 01/19/25 21:15 01/19/25 21:15 Temperature Pulse Rate 82 Pulse Rate [Right Radial] Respiratory Rate 22 Blood Pressure [Left Arm] O2 Sat by Pulse Oximetry 99 Oxygen Delivery Method Room Air FIO2% 01/19/25 21:57 01/19/25 21:57 01/19/25 23:38 Temperature 98.4 F Pulse Rate Pulse Rate [Right Radial] 69 Respiratory Rate 18 18 20 Blood Pressure [Left Arm] 129/71 O2 Sat by Pulse Oximetry 100 Oxygen Delivery Method Room Air FIO2% 01/20/25 01:27 01/20/25 02:27 01/20/25 04:00 Temperature 98.4 F Pulse Rate Pulse Rate [Right Radial] 53 L Respiratory Rate 16 18 20 Blood Pressure [Left Arm] 121/64 O2 Sat by Pulse Oximetry 100 Oxygen Delivery Method Room Air FIO2% 01/20/25 06:44 01/20/25 07:00 01/20/25 08:00 Temperature 98.2 F Pulse Rate Pulse Rate [Right Radial] 53 L Respiratory Rate 18 20 Blood Pressure [Left Arm] 136/76 O2 Sat by Pulse Oximetry 99 Oxygen Delivery Method Room Air Room Air FIO2% 01/20/25 08:49 01/20/25 09:29 01/20/25 09:38 Temperature Pulse Rate 80 Pulse Rate [Right Radial] Respiratory Rate 18 Blood Pressure [Left Arm] O2 Sat by Pulse Oximetry 100 Oxygen Delivery Method Room Air FIO2% Labs: Laboratory Last Values WBC 9.0 X10^3/uL (3.6-10.0) 01/20/25 05:37 RBC 4.64 X10^6/uL (3.5-5.4) 01/20/25 05:37 Hgb 9.7 g/dL (12.0-16.0) L 01/20/25 05:37 Hct 31.4 % (36.0-47.0) L 01/20/25 05:37 MCV 67.7 fL (80.0-100.0) L 01/20/25 05:37 MCH 20.9 pg (27.0-34.0) L 01/20/25 05:37 MCHC 30.9 g/dL (33.0-35.0) L 01/20/25 05:37 RDW 26.5 % (11.6-16.5) H 01/20/25 05:37 Plt Count 295 X10^3/uL (150.0-450.0) 01/20/25 05:37 Plt Count Comment Adequate (ADEQUATE) 01/20/25 05:37 MPV 8.3 fL (7.4-11.0) 01/20/25 05:37 Neut % (Auto) 58.5 % (42.0-75.0) 01/20/25 05:37 Lymph % (Auto) 29.4 % (21.0-51.0) 01/20/25 05:37 [place] % (Auto) 8.8 % (0.0-13.0) 01/20/25 05:37 Eos % (Auto) 2.1 % (0.9-2.9) 01/20/25 05:37 Baso % (Auto) 1.2 % (0.2-1.0) H 01/20/25 05:37 Neut # (Auto) 5.2 x10^3/uL (2.2-4.8) H 01/20/25 05:37 Lymph # (Auto) 2.6 X10^3/uL (1.3-2.9) 01/20/25 05:37 [place] # (Auto) 0.8 x10^3/uL (0.3-0.8) 01/20/25 05:37 Eos # (Auto) 0.2 x10^3/uL (0.0-0.2) 01/20/25 05:37 Baso # (Auto) 0.1 X10^3/uL (0.0-0.1) 01/20/25 05:37 Absolute Nucleated RBC 0.2 /100WBC 01/20/25 05:37 Total Counted Cancelled 01/20/25 05:37 Neutrophils % (Manual) Cancelled 01/20/25 05:37 Band Neutrophils % Cancelled 01/20/25 05:37 Lymphocytes % (Manual) Cancelled 01/20/25 05:37 Monocytes % (Manual) Cancelled 01/20/25 05:37 Eosinophils % (Manual) Cancelled 01/20/25 05:37 Basophils % (Manual) Cancelled 01/20/25 05:37 Metamyelocytes % Cancelled 01/20/25 05:37 Myelocytes % Cancelled 01/20/25 05:37 Promyelocytes % Cancelled 01/20/25 05:37 Nucleated RBCs Cancelled 01/20/25 05:37 Atypical Lymphocytes Cancelled 01/20/25 05:37 Blast Cells Cancelled 01/20/25 05:37 Smudge Cells Cancelled 01/20/25 05:37 Toxic Granulation Cancelled 01/20/25 05:37 Dohle Bodies Cancelled 01/20/25 05:37 [place] Rods Cancelled 01/20/25 05:37 Plt Clumps, EDTA Cancelled 01/20/25 05:37 Giant Platelets Cancelled 01/20/25 05:37 Plt Morphology Comment Normal (NORMAL) 01/20/25 05:37 RBC Morphology Abnormal (NORMAL) A 01/20/25 05:37 Dimorphic RBCs Cancelled 01/20/25 05:37 Polychromasia Cancelled 01/20/25 05:37 Hypochromasia Cancelled 01/20/25 05:37 Poikilocytosis Cancelled 01/20/25 05:37 Basophilic Stippling Cancelled 01/20/25 05:37 Anisocytosis 3+ A 01/20/25 05:37 Microcytosis 1+ A 01/20/25 05:37 Macrocytosis Cancelled 01/20/25 05:37 Spherocytes Cancelled 01/20/25 05:37 Pappenheimer Bodies Cancelled 01/20/25 05:37 Sickle Cells Cancelled 01/20/25 05:37 Target Cells Cancelled 01/20/25 05:37 Tear Drop Cells Cancelled 01/20/25 05:37 Ovalocytes Cancelled 01/20/25 05:37 Stomatocytes Cancelled 01/20/25 05:37 Helmet Cells Cancelled 01/20/25 05:37 [place] Bodies Cancelled 01/20/25 05:37 [place] Rings Cancelled 01/20/25 05:37 [place] Cells Cancelled 01/20/25 05:37 Crenated Cell Cancelled 01/20/25 05:37 Acanthocytes (Spur) Cancelled 01/20/25 05:37 Rouleaux Cancelled 01/20/25 05:37 Schistocytes Cancelled 01/20/25 05:37 Sodium 140 mmol/L (136-145) 01/20/25 05:37 Corrected Sodium TNP 01/20/25 05:37 Potassium 4.1 mmol/L (3.5-5.1) 01/20/25 05:37 Chloride 106 mmol/L (98-107) 01/20/25 05:37 Carbon Dioxide 32.0 mmol/L (21-32) 01/20/25 05:37 BUN 7 mg/dL (7-18) 01/20/25 05:37 Creatinine 0.77 mg/dL (0.55-1.02) 01/20/25 05:37 Est GFR (MDRD) Af Amer > 60 (>60) 01/20/25 05:37 Est GFR (MDRD) Non-Af > 60 (>60) 01/20/25 05:37 Glucose 86 mg/dL (65-99) 01/20/25 05:37 Calcium 8.7 mg/dL (8.5-10.1) 01/20/25 05:37 Corrected Calcium 9.3 mg/dL (8.5-10.1) 01/20/25 05:37 Total Bilirubin 0.30 mg/dL (0.2-1.0) 01/20/25 05:37 AST 15 Units/L (15-37) 01/20/25 05:37 ALT 12 Units/L (12-78) 01/20/25 05:37 Alkaline Phosphatase 57 Units/L (46-116) 01/20/25 05:37 Total Protein 6.6 g/dL (6.4-8.2) 01/20/25 05:37 Albumin 3.2 g/dL (3.4-5.0) L 01/20/25 05:37 Globulin 3.4 g/dL (2.5-4.5) 01/20/25 05:37 Albumin/Globulin Ratio 0.9 Ratio (1.1-2.1) L 01/20/25 05:37 Amylase 69 Units/L (25-115) 01/18/25 05:20 Lipase 79 Units/L (16-77) H 01/18/25 05:20 Specimen Type Clean catch urine 01/16/25 22:45 Urine Color Yellow (YELLOW) 01/16/25 22:45 Urine Appearance Cloudy (CLEAR) 01/16/25 22:45 Urine pH 7.0 (5.0 - 8.0) 01/16/25 22:45 Ur Specific [place] 1.015 (1.000-1.030) 01/16/25 22:45 Urine Protein 3+ (NEGATIVE) 01/16/25 22:45 Urine Glucose (UA) Negative (NEGATIVE) 01/16/25:45 Urine Ketones 1+ (NEGATIVE) 01/16/25 22:45 Urine Blood Negative (NEGATIVE) 01/16/25 22:45 Urine Nitrite Negative (NEGATIVE) 01/16/25:45 Urine Bilirubin Negative (NEGATIVE) 01/16/25 22:45 Urine Urobilinogen 2+ (NORMAL) 01/16/25 22:45 Ur Leukocyte Esterase Negative (NEGATIVE) 01/16/25 22:45 Urine RBC 0-2 /HPF (0-3) 01/16/25 22:45 Urine WBC 0-2 /HPF (0-5) 01/16/25 22:45 Ur Squamous Epith Cells Few /HPF (NEGATIVE) 01/16/25 22:45 Ur Renal Epithelial Cell Moderate /HPF (NEGATIVE) 01/16/25 22:45 Amorphous Sediment 3+ /HPF (NEGATIVE) 01/16/25 22:45 Urine Bacteria Negative /HPF (NEGATIVE) 01/16/25:45 Fine Granular Casts Few /LPF (NEGATIVE) 01/16/25 22:45 Ur Culture Indicated? No/not indicated 01/16/25 22:45 Urine Opiates Screen Negative (NEG=<300) 01/16/25 22:45 Urine Methadone Screen Negative (NEG=<300) 01/16/25 22:45 Ur Barbiturates Screen Negative (NEG=<200) 01/16/25 22:45 Ur Phencyclidine Scrn Negative (NEG=<25) 01/16/25 22:45 Ur Amphetamines Screen Negative (NEG=<1000) 01/16/25 22:45 U Benzodiazepines Scrn Negative (NEG=<200) 01/16/25 22:45 Urine Cocaine Screen Negative (NEG=<300) 01/16/25 22:45 U Marijuana (THC) Screen Negative (NEG=<50) 01/16/25 22:45 Blood Type A POSITIVE 01/16/25 23:03 Antibody Screen Negative 01/16/25 23:03 Crossmatch See Detail 01/16/25 23:03 Reason For Visit: ANEMIA, HYPERTENSION, ABDOMINAL PAIN Discharge Diagnosis All Active Problems (Updated 01/17/25 @ 09:50 by Buster Pereira MD) Symptomatic anemia (Acute) Anemia, chronic disease (Acute) Abdominal pain due to injury (Acute) Abdominal pain (Acute) Dizziness (Acute) Anemia (Acute) GERD (gastroesophageal reflux disease) (Acute) Constipation (Acute) Hypertension (Acute) Duodenitis (Acute) MAGGY (iron deficiency anemia) (Acute) Plan of Treatment: Continue with present treatment and follow up plan. Pt is to keep follow up appointment as instructed and take medications as ordered. Discharge Medications Discharge Medications: Penicillins Allergy (Verified 12/06/18 14:30) New Prescriptions amlodipine 5 mg tablet 5 mg PO DAILY 30 days #30 tabs 01/20/25 [Rx] hydrochlorothiazide 12.5 mg capsule 12.5 mg PO DAILY 30 days #30 caps 01/20/25 [Rx] medroxyprogesterone 5 mg tablet 10 mg (2 x 5 mg) PO BID 10 days #40 tabs 01/20/25 [Rx] telmisartan 40 mg tablet 80 mg (2 x 40 mg) PO DAILY 30 days #60 tabs 01/20/25 [Rx] Discharge Disposition Discharge Disposition: home Discharge Condition: stable Discharge Plan Discharge Plan Hospital Course: Patient is a 44-year-old female with a past medical history of iron deficiency anemia, hypertension, presenting with weakness and abdominal pain. She reports a history of having heavy menstrual cycles. She reports having fatigue and some weakness. She is reporting some abdominal pain. Denies any signs of bleeding. Denies fevers or chills. Labs/imaging: WBC 8.2, hemoglobin 6.7, platelets 464, sodium 135, potassium 3.6, creatinine 0.79, glucose 105, UA negative, CT abdomen pelvis was obtained that revealed possible liver cyst. No other intraabdominal findings. Patient was admitted for symptomatic anemia. This is likely due to menorrhagia. Her labs are monitored daily and electrolytes replaced as needed. She was transfused 2 units PRBCs. BAKERY HELPER was consulted for further recommendations. Patient also had elevated blood pressure, BP meds were adjusted accordingly. BAKERY HELPER recommended adding Provera to help control with bleeding. She will need to follow-up outpatient for ultrasound. Patient's menstrual bleeding did decrease and she was feeling better. Her hemoglobin did trend down to 7.5, she required 2 more units of blood. She was also given iron infusion. She was feeling better and ambulating in the room. She was stable for discharge. She will need to follow-up with BAKERY HELPER and PCP as scheduled. Patient Disposition: 01 HOME, SELF-CARE Condition: Stable Health Concerns: Post Hospitalization: new medications and changes needed to prevent readmission or further decline. Pt educated and given instructions on all concerns. Care Plan Goals: Problem: Fluid Volume Deficit Goal: Maintain/Improved Adequate hydration. Instructions: Follow provided instructions. Follow up with primary physician as directed. Contact primary care physician or report to the closest Emergency Room if condition worsens. Plan of Treatment: Continue with present treatment and follow up plan. Pt is to keep follow up appointment as instructed and take medications as ordered. Prescription drug monitoring program results: PDMP reviewed and no concerns identified Prescriptions: New medroxyprogesterone 5 mg Tablet 10 mg PO BID 10 Days Qty: 40 0RF Rx Instructions: take as needed for heavy menstrual bleeding amlodipine 5 mg Tablet 5 mg PO DAILY 30 Days Qty: 30 0RF telmisartan 40 mg Tablet 80 mg PO DAILY 30 Days Qty: 60 0RF hydrochlorothiazide 12.5 mg Capsule 12.5 mg PO DAILY 30 Days Qty: 30 0RF tramadol 50 mg tablet 50 mg PO BID MDD 2 PRN (Reason: pain) 5 Days Qty: 10 0RF ketorolac 10 mg tablet 10 mg PO Q8H PRN (Reason: pain) 5 Days Qty: 15 0RF Continued pantoprazole 40 mg tablet,delayed release (DR/EC) 40 mg PO QDAY 30 Days Qty: 30 3RF ferrous sulfate 325 mg (65 mg iron) tablet 325 mg PO QDAY Qty: 30 3RF docusate sodium [Stool Softener] 100 mg capsule 100 mg PO QDAY PRN (Reason: constipation) Qty: 30 3RF tramadol 50 mg tablet 50 mg PO BID MDD 2 PRN (Reason: pain) Qty: 7 0RF Discontinued amlodipine 10 mg tablet 10 mg PO DAILY Qty: 30 3RF Orders to Discharge Patient Discharge Orders: Discharge (Routine); Ordered 01/20/25 Ordered By: Susana Holt Follow ups/Referrals Follow ups/Referrals: KARL RAMIREZ [STAFF PHYSICIAN, [facility]setrics/Gynecology] - 01/29/25 1:00 pm Referral Note: Buster Pereira MD [STAFF PHYSICIAN, MEDICAL] - 01/31/25 11:20 am Instructions Instructions: Anemia, Menorrhagia, Abnormal Uterine Bleeding, [id number] Stand Alone Forms: Find Help Web Site, Post Hospital Follow Up Care Print Language: [place]
== END 2025-01-20 13:10 | disposition home or self-care (01) ==
LOC: MED/SURG 21:47 → ER 21:47 → MED/SURG 01-17 01:38
PROVIDERS: ADMIT Family Medicine; ATTEND Family Medicine
DX: R10.84 Generalized abdominal pain; R11.2 Nausea with vomiting, unspecified; R73.09 Other abnormal glucose; I10 Essential (primary) hypertension; N92.0 Excessive and frequent menstruation with regular cycle; E80.6 Other disorders of bilirubin metabolism; D50.8 Other iron deficiency anemias; R00.0 Tachycardia, unspecified; R53.83 Other fatigue; R79.89 Other specified abnormal findings of blood chemistry; E87.1 Hypo-osmolality and hyponatremia; R94.31 Abnormal electrocardiogram [ECG] [EKG]; R53.1 Weakness; Z72.0 Tobacco use; K21.9 Gastro-esophageal reflux disease without esophagitis